=== PATIENT | female | born 1975 | race Caucasian/White ===

== ENCOUNTER 2017-10-17 00:01 | Emergency (ER) | payer MEDICAID, SELFPAY ==
--- NOTE | 2017-10-17 00:09 | NURSING ---
PT WAS RESTRAINED UPON ARRIVAL FOR COMBATIVE BEHAVIOR, NOT COOPERATING, BEING ABUSIVE TOWARD NURSING STAFF AND PHYSCIAN.
[2017-10-17 00:15] VITALS: BP 121/78; PULSE 91; RESP 25; TEMP 37.1; O2SAT 95; BMI 28.2
[2017-10-17] MEDS: Ziprasidone IM 20 MG/ML VIAL IM (00:30)
--- NOTE | 2017-10-17 00:49 | NURSING ---
pt has been told many times why she is here, [place] police were even called up here to talk with the patient why she is here. the police also talked with her family as well.
[2017-10-17 01:41] LABS: Absolute Lymphocyte Count 2.93 X10^3/ul (0.83-4.51); Absolute Neutrophil Count 3.3 X10^3/uL (2.0-7.7); Basophil# 0.05 X10^3/uL; Basophil% 0.7 % (0-1); Eosinophil# 0.07 X10^3/uL; Hematocrit 37.3 % (37-47); Lymphocyte # 2.93 X10^3/ul (4.0); Lymphocyte % 42.5 % (19-41); Mean Corp Hgb Conc 32.2 g/gl (32-36); Mean Corpuscular Hgb 28.1 pg (27.0-32.0); Mean Corpuscular Volume 87.4 fL (81-99); Mean Platelet Vol. 9.2 fl (6.2-12.0); Monocyte# 0.56 X10^3/uL; Monocyte% 8.1 % (0-10); Neutrophil # 3.27 X10^3/uL (2.7-7.7); Neutrophil % 47.6 % (47-70); Platelet Count 357 K/mm3 (150-450); RBC Distribution Width CV 13.8 % (11.6-14.6); RBC Distribution Width SD 43.8 fl (35.1-43.9); Red Blood Count 4.27 M/mm3 (4.2-5.4); White Blood Count 6.9 K/mm3 (4.4-11.0)
[2017-10-17 01:43] LABS: POSITIVE COUNT NO; POSITIVE DIFFERENTIAL NO; POSITIVE MORPHOLOGY NO
[2017-10-17 02:05] LABS: AST(SGOT) 16 U/L (15-37); Alanine Aminotransfer ALT/SGPT 15 U/L (13-56); Albumin, Serum 3.6 g/dL (3.2-5.0); Alkaline Phosphatase 72 U/L (45-117); Anion Gap 10 (5-15); BUN 18 mg/dL (7-18); BUN/Creat Ratio 23.6 RATIO (10-20); Calcium,Total 8.4 mg/dL (8.5-10.1); Chloride 110 mmol/L (98-107); Creatinine, Serum 0.76 mg/dL (0.55-1.02); EST Glomerular Filtration Rate 88 mL/min (>60); Est Glom Filt Rate - Afr Amer 107 mL/min (>60); Estimated Creatinine Clearance 100.78 ml/min; Globulin 3.6 g/dL (2.2-4.2); Glucose 93 mg/dL (74-106); Potassium 3.7 mmol/L (3.5-5.1); Protein, Total 7.2 g/dL (6.4-8.2); Sodium Level 143 mmol/L (136-145)
[2017-10-17 02:41] VITALS: BP 127/68; PULSE 76; RESP 16; O2SAT 97
--- NOTE | 2017-10-17 02:42 | NURSING ---
nurses had 4 attempts, were no successful iv.
[2017-10-17] MEDS: Ondansetron ODT 4 MG Tablet PO (02:52)
[2017-10-17 03:58] VITALS: BP 97/62; PULSE 67; RESP 16; O2SAT 96
--- NOTE | 2017-10-17 03:59 | NURSING ---
the pt was removed from restraints. she was picked up by a responsible adult who was sober. the pt was given her clothes back.
[2017-10-17 04:02] VITALS: BP 95/68; PULSE 67; RESP 18; O2SAT 96
--- NOTE | 2017-10-17 04:07 | ED.DCSUM_ITS ---
- ER Visit Summary Date of Service: 10/17/17 Chief Complaint: [] Alcohol intoxication History of Present Illness: The patient is a 42 F [] complaining of alcohol intoxication. Patient was brought in by local police as she over consumed alcohol at a local tavern and it was felt that she needed medical attention. She was physically aggressive upon arrival and required immediate physical restraints. Remainder of history was unable to be obtained. Physical Examination: [] Intoxicated female no acute distress cardiovascular exam is regular rate and rhythm. Lungs clear to auscultation. Abdomen is soft and nontender. Test Results: [] CBC, BMP, LFTs normal. Serum EtOH was obtained approximately 1.5 hours after her arrival as she was very belligerent and agitated. This measured as 0.221. Emergency Department Course and Treatment: [] Patient was placed in physical restraints and was still agitated and received 20 IM Geodon for chemical restraint. She was observed for approximately 3-1/2 hours when a family member called and requested to take her home and watch over her. She was more awake and alert after approximately 3 and half hours and was removed from physical restraints and was turned over in the care of her family member. Treatment Plan: [] Follow-up with PCP. Discontinue alcohol consumption. Disposition: [] Discharge, stable. Impression: [] Alcohol intoxication This note was generated with [employer] dictation software. It may contain incorrect words, spelling, and punctuation that were not noted in review of the chart prior to signing ED Disposition - Plan for ED Patient: Disposition: Home or Assisted Living Chief Complaint: ETOH Intox Referrals: Caterina Jones PA [Primary Care Provider] -
== END 2017-10-17 04:02 | disposition home or self-care (01) ==
PROVIDERS: Emergency Provider Emergency Medicine; Family Provider Physician Assistant; PCP Physician Assistant
DX: F10.129 Alcohol abuse with intoxication, unspecified (principal); E66.9 Obesity, unspecified; Z78.1 Physical restraint status; R45.1 Restlessness and agitation; Z79.899 Other long term (current) drug therapy
CPT/HCPCS: 36415; 80053; 80320; 85025; 96372; 99285; G0480; J3486

== ENCOUNTER 2018-06-20 06:44 | Emergency (ER) | payer MEDICAID, SELFPAY ==
[2018-06-20 06:45] VITALS: BP 160/71; PULSE 81; RESP 17; TEMP 37.2; O2SAT 96; BMI 27.9
--- NOTE | 2018-06-20 07:40 | CT_ITS ---
STUDY: CT ABDOMEN AND PELVIS WITHOUT CONTRAST REASON FOR EXAM: Female, 43 years old. Left flank pain and left abdominal pain since yesterday. History of stones. RADIATION DOSAGE (If Supplied By Facility): CTDIvol = ( 11.04 ) mGy, DLP = ( 573.56 ) mGycm TECHNIQUE: Transaxial images were obtained from the dome of the diaphragm to the symphysis pubis without oral contrast, and without intravenous contrast. Sagittal and coronal images were reconstructed. Individualized dose optimization techniques were used for this CT. COMPARISON: Comparison is made with prior study dated October 14, 2014. FINDINGS: Stable mild degree of right centrilobular emphysematous changes. The visualized portions of the heart are within normal limits. Normal liver. Normal gallbladder and extrahepatic biliary system. Normal spleen. Normal pancreas. There is stable hyperplasia of the left adrenal gland. There are 2 tiny nonobstructive right intrarenal calculi. The larger measures 3 mm. This is in the lower pole calyx. Normal left kidney. Normal visualized stomach. Normal small intestine. Normal colon. There are surgical clips in the region of the appendix consistent with a prior appendectomy. Normal abdominal aorta. Normal inferior vena cava. Normal retroperitoneum. Normal urinary bladder. There is a left-sided inguinal hernia containing adipose tissue. Normal osseous structures. CT/Abdomen/Pelvis without Cont IMPRESSION: 2 nonobstructive intrarenal calculi in the lower pole calyx of the right kidney. Stable mild hyperplasia of the left external gland. Stable emphysematous changes in the right lower lobe. Electronically Signed: Dario Solorzano MD at 9:12 EST Tel [phone], Service support ,
--- NOTE | 2018-06-20 07:53 | ED.DCSUM_ITS ---
- ER Visit Summary Date of Service: 06/20/18 Chief Complaint: [] Left flank pain for a few days History of Present Illness: The patient is a 43 F [] she presents complaining of left flank pain for a few days intensified this morning she came in for evaluation, because she has been having a vague pain to the left lower abdomen some urinary symptoms, she went to be seen at an urgent care center recently was diagnosed with UTI started on Keflex and ibuprofen, the left flank pain intensified today and she came in for evaluation, no nausea vomiting or fever denies any bowel or bladder complaints otherwise denies , No trauma does report a history of kidney stones years ago nothing recent, she points directly to the left flank as focus of pain Physical Examination: [] 160/80 afebrile, General, no distress resting comfortably HEENT is generally unremarkable The neck is supple no adenopathy Cardiovascular, regular rate and rhythm Lungs, clear bilateral Abdomen, soft nontender she has a vague pain to the left flank there is no rebound guarding organomegaly Extremities, no clubbing cyanosis or edema Neurologic, awake alert answering questions appropriately moving all 4 extremities Given all the above screening labs are obtained UA CT flank pain management The patient's studies are all unremarkable generally see those reports, her UA shows really nothing acute but she has been on antibiotics for a few days, her flank CT shows nothing acute see those reports Givenall the above with her given all the above she will stay on the ibuprofen she was prescribed, complete the Keflex she was prescribed, follow with her family doctor as an outpatient providers and return for change in symptoms I explained to the concept of an occult injury and hence the need for further outpatient management with her outpatient providers and she agrees and will follow up, please note we also did send a urine culture she is aware those results are pending and she will have her outpatient providers check those results Test Results: [] Emergency Department Course and Treatment: [] Treatment Plan: [] Disposition: [] Home stable Impression: [] Left flank pain etiology unclear, reported history for UTI on antibiotics This note was generated with [employer] software. It may contain incorrect words, spelling, and punctuation that were not noted in review of the chart prior to signing ED Disposition - Plan for ED Patient: Chief Complaint: Flank Pain Referrals: Caterina Jones PA [Primary Care Provider] -
[2018-06-20 08:00] LABS: Absolute Lymphocyte Count 1.32 X10^3/ul (0.83-4.51); Absolute Neutrophil Count 5.6 X10^3/uL (2.0-7.7); Basophil# 0.04 X10^3/uL; Basophil% 0.5 % (0-1); Eosinophil# 0.03 X10^3/uL; Eosinophils% 0.4 % (0-5); Hemoglobin 11.3 g/dl (12.0-15.0); Lymphocyte # 1.32 X10^3/ul (4.0); Lymphocyte % 16.6 % (19-41); Mean Corp Hgb Conc 32.3 g/gl (32-36); Mean Corpuscular Hgb 28.8 pg (27.0-32.0); Mean Corpuscular Volume 89.1 fL (81-99); Mean Platelet Vol. 10.3 fl (6.2-12.0); Monocyte# 0.93 X10^3/uL; Monocyte% 11.7 % (0-10); Neutrophil % 70.5 % (47-70); Platelet Count 327 K/mm3 (150-450); RBC Distribution Width CV 13.9 % (11.6-14.6); RBC Distribution Width SD 44.4 fl (35.1-43.9); Red Blood Count 3.93 M/mm3 (4.2-5.4); White Blood Count 7.9 K/mm3 (4.4-11.0)
[2018-06-20] MEDS: 0.9% Normal Saline 1,000 ML 250 ML IV (08:04)
[2018-06-20] MEDS: Ondansetron 4 MG/2 ML Vial IV (08:05)
[2018-06-20] MEDS: Morphine 4 MG/ML Syringe IV (08:05)
[2018-06-20 08:10] LABS: Anion Gap 10 (5-15); BUN 14 mg/dL (7-18); BUN/Creat Ratio 15.4 RATIO (10-20); Calcium,Total 8.4 mg/dL (8.5-10.1); Chloride 106 mmol/L (98-107); Creatinine, Serum 0.91 mg/dL (0.55-1.02); EST Glomerular Filtration Rate 72 mL/min (>60); Est Glom Filt Rate - Afr Amer 87 mL/min (>60); Estimated Creatinine Clearance 83.31 ml/min; Glucose 98 mg/dL (74-106); Potassium 3.8 mmol/L (3.5-5.1); Sodium Level 141 mmol/L (136-145)
[2018-06-20 08:22] LABS: POSITIVE COUNT NO; POSITIVE DIFFERENTIAL NO; POSITIVE MORPHOLOGY NO; Pregnancy, Serum, hCG Quali. NEGATIVE Negative (0-9 Nonpreg)
[2018-06-20 08:56] LABS: Mucous, Urine 0 SEEN /hpf (<or=2+)
[2018-06-20 09:06] VITALS: RESP 18
[2018-06-20 09:20] LABS: Color, Urine Yellow (Yellow); Glucose, Dipstick Normal (Normal); Ketone-Dipstick Negative (Negative); Leukocyte Esterase-Dipstick 25 /ul (Negative); Nitrite-Dipstick Negative (Negative); Occult Blood-Urine 25 /ul (Negative); Protein-Dipstick 15 mg/dl (Negative); Specific Gravity, Urine 1.015 (1.002-1.030); Urine Bilirubin Dipstick Negative (Negative); Urine Clarity Sl. Cloudy (Clear); Urine Urobilinogen Normal (Normal); Urine pH 6.5 (5.0 - 8.0)
[2018-06-20 09:21] LABS: Bacteria RARE /hpf (None Seen); Red Blood Cells-Urine 0-5 SEEN /hpf (0-5); Squamous Epithelial Cells - UA 0-5 SEEN /hpf (5-10); White Blood Cells 0-5 SEEN /hpf (0-5)
--- NOTE | 2018-06-20 10:01 | ED.DEP ---
ED Disposition - Plan for ED Patient: Chief Complaint: Flank Pain Instructions: ED Flank Pain Uncertain Cause Referrals: Caterina Jones PA [Primary Care Provider] - Michael Villela MD [STAFF PHYSICIAN] -
[2018-06-20] MEDS: Ketorolac 30 MG/ML Syringe IV (10:08)
--- OUTSIDE RECORDS SUMMARY | 2018-08-13 07:15 | XMS RPT_ITS ---
:1975 Author Organization OHIP Care Team Providers Name Role Phone PALMER SHAH Admitting Unavailable PALMER SHAH Attending Unavailable PALMER SHAH Admitting Unavailable PALMER SHAH Attending Unavailable PALMER SHAH Admitting Unavailable PALMER SHAH Attending Unavailable PALMER SHAH Attending Unavailable Caterina JONES (PA-C) Referring Unavailable OMID ALCANTAR ([facility]) Attending Unavailable Caterina JONES (PA-C) Referring Unavailable Caterina JONES (PA-C) Attending Unavailable Caterina JONES (PA-C) Attending Unavailable Caterina Jones Primary Care Unavailable Michael Manjarrez Attending Unavailable Caterina Jones Primary Care Unavailable Andi Curiel Attending Unavailable PROBLEMS PROBLEMS DATE TYPE CONDITION / CODE ATTENDING STATUS SOURCE 10/28/2017 Active 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, Other [place] lumbar region / Repository M51.36(ICD-10) 06/02/2017 Active 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, not Main [place] elsewhere classified Repository / M53.3(ICD-10) 03/17/2017 Active Lumbago with PALMER SHAH Active [facility] sciatica, left side Main [place] / M54.42(ICD-10) Repository PROCEDURES PROCEDURES No Procedure Records FoundRESULTS RESULTS EMERGENCY DEPARTMENT Observed: 06/20/2018 Status: F Source: [place] SUMMARY 4:21 PM [facility] REPOSITORY [facility] Medical Records Department [address] [place] [address] Emergency Department Summary 06/20/18 0751 MR#: [id number] Acct: [id number] Name: RADHA REYNOLDS Rep #: [id number] : 1975 43 From: Andi Curiel MD PCP: Caterina Jones Status: DEP ER - ER Visit Summary Date of Service: 06/20/18 Chief Complaint: [] Left flank pain for a few days History of Present Illness: The patient is a 43 F [] she presents complaining of left flank pain for a few days intensified this morning she came in for evaluation, because she has been having a vague pain to the left lower abdomen some urinary symptoms, she went to be seen at an urgent care center recently was diagnosed with UTI started on Keflex and ibuprofen, the left flank pain intensified today and she came in for evaluation, no nausea vomiting or fever denies any bowel or bladder complaints otherwise denies , No trauma does report a history of kidney stones years ago nothing recent, she points directly to the left flank as focus of pain Physical Examination: [] 160/80 afebrile, General, no distress resting comfortably HEENT is generally unremarkable The neck is supple no adenopathy Cardiovascular, regular rate and rhythm Lungs, clear bilateral Abdomen, soft nontender she has a vague pain to the left flank there is no rebound guarding organomegaly Extremities, no clubbing cyanosis or edema Neurologic, awake alert answering questions appropriately moving all 4 extremities Given all the above screening labs are obtained UA CT flank pain management The patient's studies are all unremarkable generally see those reports, her UA shows really nothing acute but she has been on antibiotics for a few days, her flank CT shows nothing acute see those reports Givenall the above with her given all the above she will stay on the ibuprofen she was prescribed, complete the Keflex she was prescribed, follow with her family doctor as an outpatient providers and return for change in symptoms I explained to the concept of an occult injury and hence the need for further outpatient management with her outpatient providers and she agrees and will follow up, please note we also did send a urine culture she is aware those results are pending and she will have her outpatient providers check those results Test Results: [] Emergency Department Course and Treatment: [] Treatment Plan: [] Disposition: [] Home stable Impression: [] Left flank pain etiology unclear, reported history for UTI on antibiotics This note was generated with Un-Lease.comation software. It may contain incorrect words, spelling, and punctuation that were not noted in review of the chart prior to signing ED Disposition - Plan for ED Patient: Chief Complaint: Flank Pain Referrals: Caterina Jones PA [Primary Care Provider] - What to do if you have Problems For any increased pain, shortness of breath, bleeding, nausea or vomiting, chest pain, or any unexpected problems, contact your Primary Care Provider. Call [facility] ([phone]) or report to the closest Emergency Room. Call 911 if necessary. 06/20/18 1621 <Electronically signed by Andi Curiel MD> Date Andi Curiel MD Cosigner Signature (If Indicated): Date CC: Caterina Jones DISCHARGE INSTRUCTION Observed: 06/20/2018 Status: F Source: [place] 10:02 AM [facility] REPOSITORY [facility] Medical Records Department [address] [place] [address] Discharge Instruction 06/20/18 1001 MR#: [id number] Acct: [id number] Name: RADHA REYNOLDS Rep #: [id number] : 1975 43 From: Andi Curiel MD PCP: Caterina Jones Status: REG ER ED Disposition - Plan for ED Patient: Chief Complaint: Flank Pain Instructions: ED Flank Pain Uncertain Cause Referrals: Caterina Jones PA [Primary Care Provider] - Michael Villela MD [STAFF PHYSICIAN] - What to do if you have Problems For any increased pain, shortness of breath, bleeding, nausea or vomiting, chest pain, or any unexpected problems, contact your Primary Care Provider. Call [facility] ([phone]) or report to the closest Emergency Room. Call 911 if necessary. 06/20/18 1002 <Electronically signed by Andi Curiel MD> Date Andi Curiel MD Cosigner Signature (If Indicated): Date CC: Caterina Jones URINALYSIS, COMPLETE Collected: 06/20/2018 Status: F Source: [place] 8:50 AM [facility] REPOSITORY Order Comment: Order Date: 06/20/18 Has pt arrived? Y How was Urine Obtained? CLEAN CATCH TYPE CODE TESTS RESULT OUT OF RANGE REFERENCE UNITS LAB L400.3000 Yellow COLOR Normal Yellow LAB L400.3050 Clear Normal CLARITY Sl. Cloudy LAB L400.3200 Normal mg/dl Normal GLUCOSE, UR Normal LAB L400.3300 Negative mg/dL Normal BILIRUBIN URINE Negative LAB L400.3400 Negative mg/dl Normal KETONE UR Negative LAB L400.3465 1.002-1.030 Normal SP.GR. DIPSTX 1.015 LAB L400.3550 5.0 - 8.0 pH UR Normal 6.5 LAB L400.3600 Negative mg/dl High PROT 15 DIPSTX LAB L400.3700 Normal mg/dl Normal UROBILI Normal LAB L400.3750 Negative Normal NITRITE UR Negative LAB L400.3780 Negative /ul High 25 OCCULT BLOOD-UR LAB L400.3800 Negative /ul High LEUK 25 ESTERASE LAB L400.4050 0-5 /hpf WBC Normal 0-5 SEEN LAB L400.4100 0-5 /hpf Normal RBC-UA 0-5 SEEN LAB L400.4150 5-10 /hpf SQUAM Normal EPI 0-5 SEEN LAB L400.4300 None Seen /hpf Normal BACTERIA RARE LAB L400.4350 <or=2+ /hpf 0 Normal MUCUS, URINE SEEN Performed By: #### L400.0001 #### [facility] [address] [place], [address] Observed: 06/20/2018 Status: F Source: [place] CULTURE, URINE 8:50 AM [facility] REPOSITORY Order Date: 06/20/18 Has pt arrived? Y Urine Culture Below infection level. ORGANISM 1: Gram Positive [place] Count <1000 Performed By: #### M100.0650 #### [facility] [address] [place], [address] ABDOMEN/PELVIS WITHOUT Observed: 06/20/2018 Status: F Source: [place] CONT 7:41 AM [facility] REPOSITORY [facility] Imaging Services [address] [place] [address] Abdomen/Pelvis without Cont MR#: [id number] Acct: [id number] Name: RADHA REYNOLDS Rep #: [id number] : 1975 F 43 From: Dario Solorzano MD PCP: Caterina Jones Status: REG ER Study: Abdomen/Pelvis without Cont Date of Exam: 06/20/18 Exam# [id number] Ordering Dr: Andi Cuirel MD STUDY: CT ABDOMEN AND PELVIS WITHOUT CONTRAST REASON FOR EXAM: Female, 43 years old. Left flank pain and left abdominal pain since yesterday. History of stones. RADIATION DOSAGE (If Supplied By Facility): CTDIvol = ( 11.04 ) mGy, DLP = ( 573.56 ) mGycm TECHNIQUE: Transaxial images were obtained from the dome of the diaphragm to the symphysis pubis without oral contrast, and without intravenous contrast. Sagittal and coronal images were reconstructed. Individualized dose optimization techniques were used for this CT. COMPARISON: Comparison is made with prior study dated October 14, 2014. FINDINGS: Stable mild degree of right centrilobular emphysematous changes. The visualized portions of the heart are within normal limits. Normal liver. Normal gallbladder and extrahepatic biliary system. Normal spleen. Normal pancreas. There is stable hyperplasia of the left adrenal gland. There are 2 tiny nonobstructive right intrarenal calculi. The larger measures 3 mm. This is in the lower pole calyx. Normal left kidney. Normal visualized stomach. Normal small intestine. Normal colon. There are surgical clips in the region of the appendix consistent with a prior appendectomy. Normal abdominal aorta. Normal inferior vena cava. Normal retroperitoneum. Normal urinary bladder. There is a left-sided inguinal hernia containing adipose tissue. Normal osseous structures. CT/Abdomen/Pelvis without Cont IMPRESSION: 2 nonobstructive intrarenal calculi in the lower pole calyx of the right kidney. Stable mild hyperplasia of the left external gland. Stable emphysematous changes in the right lower lobe. Electronically Signed: Dario Solorzano MD at 9:12 EST Tel [phone], Service support , CC: Caterina Jones; MD Telma Curiel Ortho Assistant: Signed BASIC METABOLIC Collected: 06/20/2018 Status: F Source: [place] PROFILE (BMP) 7:20 AM [facility] REPOSITORY TYPE CODE TESTS RESULT OUT OF RANGE REFERENCE UNITS LAB L501.0100 74-106 mg/dL Normal GLU 98 Result Comment: Please note revised GLUCOSE reference range effective 2017. LAB L501.1000 7-18 mg/dL Normal BUN 14 LAB L501.1100 0.55-1.02 mg/dL Normal CREAT,SERUM 0.91 Result Comment: The validity of the calculated GFR AND GFRAA in patients over 70 years has not been determined. Clinical correlation is essential. LAB L501.1110 >60 mL/min Normal EST GFR 72 Result Comment: Non- GFR Calc LAB L501.1115 >60 mL/min Normal EST GFR - AA 87 Result Comment: GFR Calc LAB L501.1255 ml/min Normal Estimated CRCL 83.31 LAB L501.1300 10-20 RATIO Normal BUN/CRE 15.4 LAB L501.2200 8.5-10 mg/dL Low .1 CA 8.4 LAB L501.5300 136-14 mmol/L Normal 5 NA 141 LAB L501.5600 3.5-5. mmol/L Normal 1 K 3.8 LAB L501.5900 98-107 mmol/L Normal CL 106 LAB L501.6100 21.0-3 mmol/L Normal 2.0 CO2 25.0 LAB L501.6200 5-15 Normal GAP 10 Performed By: #### L500.2500 #### [facility] [address] [place], [address] CBC W/DIFF, AUTOMATED Collected: 06/20/2018 Status: F Source: [place] 7:20 AM [facility] REPOSITORY TYPE CODE TESTS RESULT OUT OF RANGE REFERENCE UNITS LAB L100.1000 4.4-11.0 K/mm3 Normal WBC 7.9 LAB L100.1200 4.2-5.4 M/mm3 Low RBC 3.93 LAB L100.1300 12.0-15.0 g/dl Low HGB 11.3 LAB L100.1400 37-47 % Low HCT 35.0 LAB L100.1500 81-99 fL Normal MCV 89.1 LAB L100.1600 27.0-32.0 pg Normal MCH 28.8 LAB L100.1700 32-36 g/gl Normal MCHC 32.3 LAB L100.1810 11.6-14.6 % Normal RDW CV 13.9 LAB L100.1820 35.1-43.9 fl High RDW SD 44.4 LAB L100.1900 150-450 K/mm3 Normal PLT 327 LAB L100.2000 6.2-12.0 fl Normal MPV 10.3 LAB L100.2100 47-70 % High NEUT% 70.5 LAB L100.2200 19-41 % Low LY% 16.6 LAB L100.2300 0-10 % High MONO% 11.7 LAB L100.2400 0-5 % Normal EO% 0.4 LAB L100.2500 0-1 % Normal BASO% 0.5 LAB L100.2550 0.0-0.9 % Normal IM GRAN % 0.300 Result Comment: IG% - Immature Granulocytes (promyelocytes, myelocytes and metamyelocytes) > 1% indicates that a LEFT SHIFT is Present. LAB L100.2620 2.0-7.7 X10 3/uL Normal Absolute Neut 5.6 LAB L100.2720 0.83-4.51 X10 3/ul Normal Absolute Lymph 1.32 Performed By: #### L100.0100 #### [facility] [address] [place], [address] ,SERUM,HCG QUALI. Collected: Status: F Source: [place] 06/20/2018 7:20 AM [facility] REPOSITORY TYPE CODE TESTS RESULT OUT OF REFERENCE UNITS RANGE LAB L700.7000 0-9 Nonpreg Negative Normal HCGSQUAL NEGATIVE LAB L700.6700 =>Qualitative mIU/mL Normal HCG Qual < 1 triggr Performed By: #### L700.6800 #### [facility] [address] [place], [address] PROGRESS Observed: 06/19/2018 Status: COMPLETED Source: [place] 2:26 PM [facility] [place] REPOSITORY HNO ID: [id number] Author: Zaynab Rebolledo (Pa) Service: (none) Author Type: Physician Electrical Prospecting Engineer Type: Progress Notes Filed: 06/19/2018 2:30 PM Note Text: Subjective HPI Patient presents with a chief complaint of left flank pain and urinary frequency. She denies any dysuria. She does have a history of kidney infections and kidney stones in the past. She denies any vomiting but has felt mildly nauseous. No fever. No diarrhea. Last menstrual cycle was last week and normal for her. Denies any vaginal discharge or drainage. Review of Systems Constitutional: Negative for chills and fever. Gastrointestinal: Positive for constipation and nausea. Negative for abdominal pain, diarrhea and vomiting. Genitourinary: Positive for flank pain, frequency and urgency. Negative for dysuria and hematuria. Musculoskeletal: Positive for back pain. Negative for falls, joint pain, myalgias and neck pain. All other systems reviewed and are negative. PAST MEDICAL HISTORY Diagnosis Date - DVT complicating 2 weeks Post CS - Meniere's disease, unspecified Meniere's disease - MIGRAINE NOS W/O MENTN INTRACTABLE 09/07/2005 - Other anxiety states Current Outpatient Prescriptions: sertraline (ZOLOFT) 100 mg tablet Take 1.5 tablets by mouth once daily. Disp: 135 tablet Rfl: 1 Multivitamins chew Take by mouth once daily. Disp: Rfl: ibuprofen (MOTRIN) 800 mg tablet TAKE 1 TABLET BY MOUTH EVERY 8 HOURS NEEDED FOR PAIN OR FEVER (FOR PAIN. TAKE WITH FOOD). Disp: 30 tablet Rfl: 5 cephALEXin (KEFLEX) 500 mg capsule Take 1 capsule by mouth twice daily for 10 days. Disp: 20 capsule Rfl: 0 tiZANidine (ZANAFLEX) 4 mg tablet Take 1 tablet by mouth at bedtime as needed. Disp: 30 tablet Rfl: 2 BIOTIN ORAL Take by mouth once daily. Disp: Rfl: promethazine (PHENERGAN) 25 mg tablet TAKE 1 TABLET BY MOUTH EVERY 6 HOURS NEEDED Disp: 30 tablet Rfl: 1 No current facility-administered medications for this visit. PAST SURGICAL HISTORY Procedure Laterality Date - APPENDECTOMY - DELIVERY ONLY , low cervical x 3 - LIGATE FALLOPIAN TUBE Tubal ligation - PAST SURGICAL HISTORY OF labyrinthectomy, left FAMILY HISTORY Problem Relation Age of Onset - Adopted: Yes - other (adopted) Mother - other (adopted) Father Social History Substance Use Topics - Smoking status: Former Smoker Packs/day: 0.50 Years: 10.00 Types: Cigarettes - Smokeless tobacco: Never Used Comment: smokes 1/2 pack per day - Alcohol use Yes Comment: Socially 3 times a year BP 110/72 Pulse 74 Temp 37 ?C (98.6 ?F) (Left Tympanic) Resp 16 Wt 85.9 kg (189 lb 6.4 oz) SpO2 98% BMI 28.80 kg/m? Objective Physical Exam Constitutional: She is oriented to person, place, and time and well-developed, well-nourished, and in no distress. HENT: Head: Normocephalic and atraumatic. Cardiovascular: Normal rate, regular rhythm and normal heart sounds. Pulmonary/Chest: Effort normal and breath sounds normal. Abdominal: Pt mildly tender on left flank, no guarding or rebound. Left CVA tenderness. No right abdominal pain. Neurological: She is alert and oriented to person, place, and time. Skin: Skin is warm and dry. Psychiatric: Affect and judgment normal. Nursing note and vitals reviewed. ASSESSMENT/PLAN: 1. Left flank pain - ICD9: 789.09, ICD10: R10.9 (primary diagnosis) } - UA DIP, URINE (POC) - URINE CULTURE - CEPHALEXIN 500 MG CAPSULE 2. Urinary frequency - ICD9: 788.41, ICD10: R35.0 Patient's temp was positive for moderate blood and small leukoesterase. I will treat her with Keflex. I did discuss with her if her flank pain becomes severe she has any vomiting or fever she needs to go to the emergency department. Explain her that I could not completely rule out kidney stone as she has had these in the past versus a urinary tract infection. Patient understood. - UA DIP, URINE (POC) - URINE CULTURE - CEPHALEXIN 500 MG CAPSULE Zaynab Rebolledo PA-C Observed: 06/19/2018 Status: F Source: [place] URINE CULTURE 1:51 PM [facility] REPOSITORY Sp. Request/Comment: - Specimen received in preservative Culture Result - >=100,000 CFU/ml Escherichia coli --> ABNORMAL ALERT ORGANISM: Escherichia coli METHOD: Minimum inhibitory concentration(Vitek) Antibiotic Interp TIGIST Status Ampicillin SUSCEPTIBLE <=2 F Gentamicin SUSCEPTIBLE <=1 F Trimeth sulfameth SUSCEPTIBLE <=20 F Cefazolin SUSCEPTIBLE <=4 F CLSI breakpoints for therapy of uncomplicated UTI's due to E.coli, K.pneumoniae, and P.mirabilis were applied and may be used to predict the activity of oral agents(cefaclor, cefdinir, cefpodoxime, cefp rozil, cefuroxime, cephalexin, loracarbef). Ciprofloxacin SUSCEPTIBLE <=0.25 F Nitrofurantoin SUSCEPTIBLE <=16 F Cefepime SUSCEPTIBLE <=1 F Piperacillin/Tazobac SUSCEPTIBLE <=4 F Ampicillin Sulbact SUSCEPTIBLE <=2 F Ceftriaxone SUSCEPTIBLE <=1 F Meropenem SUSCEPTIBLE <=0.25 F Ertapenem SUSCEPTIBLE <=0.5 F Performed By: #### URCUL #### [facility] [address] [place], [place] [address] CNOV Observed: 06/19/2018 Status: COMPLETED Source: [place] 1:00 PM [facility] REPOSITORY Office Visit ([facility]) RADHA REYNOLDS ([id number]) 1975 F Date Time Provider Department 06/19/18 1:00 PM ZAYNAB REBOLLEDO (ZOIE) [facility] During your visit today, we recorded the following information about you: Temperature Pulse Respiration Blood pressure 98.6 degrees 74/minute 16/minute 110/72 Weight 85.9 kg Zaynab Rebolledo PA-C 06/19/2018 2:30 PM Signed Subjective HPI Patient presents with a chief complaint of left flank pain and urinary frequency. She denies any dysuria. She does have a history of kidney infections and kidney stones in the past. She denies any vomiting but has felt mildly nauseous. No fever. No diarrhea. Last menstrual cycle was last week and normal for her. Denies any vaginal discharge or drainage. Review of Systems Constitutional: Negative for chills and fever. Gastrointestinal: Positive for constipation and nausea. Negative for abdominal pain, diarrhea and vomiting. Genitourinary: Positive for flank pain, frequency and urgency. Negative for dysuria and hematuria. Musculoskeletal: Positive for back pain. Negative for falls, joint pain, myalgias and neck pain. All other systems reviewed and are negative. PAST MEDICAL HISTORY Diagnosis Date - DVT complicating 2 weeks Post CS - Meniere's disease, unspecified Meniere's disease - MIGRAINE NOS W/O MENTN INTRACTABLE 09/07/2005 - Other anxiety states Current Outpatient Prescriptions: sertraline (ZOLOFT) 100 mg tablet Take 1.5 tablets by mouth once daily. Disp: 135 tablet Rfl: 1 Multivitamins chew Take by mouth once daily. Disp: Rfl: ibuprofen (MOTRIN) 800 mg tablet TAKE 1 TABLET BY MOUTH EVERY 8 HOURS NEEDED FOR PAIN OR FEVER (FOR PAIN. TAKE WITH FOOD). Disp: 30 tablet Rfl: 5 cephALEXin (KEFLEX) 500 mg capsule Take 1 capsule by mouth twice daily for 10 days. Disp: 20 capsule Rfl: 0 tiZANidine (ZANAFLEX) 4 mg tablet Take 1 tablet by mouth at bedtime as needed. Disp: 30 tablet Rfl: 2 BIOTIN ORAL Take by mouth once daily. Disp: Rfl: promethazine (PHENERGAN) 25 mg tablet TAKE 1 TABLET BY MOUTH EVERY 6 HOURS NEEDED Disp: 30 tablet Rfl: 1 No current facility-administered medications for this visit. PAST SURGICAL HISTORY Procedure Laterality Date - APPENDECTOMY - DELIVERY ONLY , low cervical x 3 - LIGATE FALLOPIAN TUBE Tubal ligation - PAST SURGICAL HISTORY OF labyrinthectomy, left FAMILY HISTORY Problem Relation Age of Onset - Adopted: Yes - other (adopted) Mother - other (adopted) Father Social History Substance Use Topics - Smoking status: Former Smoker Packs/day: 0.50 Years: 10.00 Types: Cigarettes - Smokeless tobacco: Never Used Comment: smokes 1/2 pack per day - Alcohol use Yes Comment: Socially 3 times a year BP 110/72 Pulse 74 Temp 37 ?C (98.6 ?F) (Left Tympanic) Resp 16 Wt 85.9 kg (189 lb 6.4 oz) SpO2 98% BMI 28.80 kg/m? Objective Physical Exam Constitutional: She is oriented to person, place, and time and well-developed, well-nourished, and in no distress. HENT: Head: Normocephalic and atraumatic. Cardiovascular: Normal rate, regular rhythm and normal heart sounds. Pulmonary/Chest: Effort normal and breath sounds normal. Abdominal: Pt mildly tender on left flank, no guarding or rebound. Left CVA tenderness. No right abdominal pain. Neurological: She is alert and oriented to person, place, and time. Skin: Skin is warm and dry. Psychiatric: Affect and judgment normal. Nursing note and vitals reviewed. ASSESSMENT/PLAN: 1. Left flank pain - ICD9: 789.09, ICD10: R10.9 (primary diagnosis) } - UA DIP, URINE (POC) - URINE CULTURE - CEPHALEXIN 500 MG CAPSULE 2. Urinary frequency - ICD9: 788.41, ICD10: R35.0 Patient's temp was positive for moderate blood and small leukoesterase. I will treat her with Keflex. I did discuss with her if her flank pain becomes severe she has any vomiting or fever she needs to go to the emergency department. Explain her that I could not completely rule out kidney stone as she has had these in the past versus a urinary tract infection. Patient understood. - UA DIP, URINE (POC) - URINE CULTURE - CEPHALEXIN 500 MG CAPSULE Zaynab Rebolledo PA-C Referring Provider: SELF [200] Allergies As of Date: 06/19/[address] dye [Other] 02/02/2005 14 - Other: See Comments Comments: low blood pressure with the injectable dye Date Reviewed: 06/19/2018 Reviewed by: Jossy Barber Ma - Fully Assessed Reason for Visit: Acute Visit [896] Cmt: left flank pain Reason For Visit History Recorded Primary Visit Diagnosis:Left flank pain [R10.9] Other Visit Diagnosis:Urinary frequency [R35.0] Order(s):UA DIP, URINE (POC) [[id number]] Order #: [id number] #:[id number] URINE CULTURE [SQURCUL] Order #: [id number] cephALEXin (KEFLEX) 500 mg capsuleTake 1 capsule by mouth twice daily for 10 days.Disp: 20 capsuleRfl: 0 Prescriptions as of 06/19/2018 Sig: SERTRALINE 100 MG TABLET Take 1.5 tablets by mouth onc* MULTIVITAMIN CHEWABLE TABLET Take by mouth once daily. IBUPROFEN 800 MG TABLET TAKE 1 TABLET BY MOUTH EVERY * CEPHALEXIN 500 MG CAPSULE Take 1 capsule by mouth twice* TIZANIDINE 4 MG TABLET Take 1 tablet by mouth at bed* BIOTIN ORAL Take by mouth once daily. 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 Degenerative disc disease, lumbar [M51.36] INVALID FOR* More... DDD (degenerative disc disease), lumbar [M51.36]INVALID FOR* More... Prescriptions ordered this encounter Disp Refills Start End CEPHALEXIN 500 MG CAPSULE 20 c* 0 06/19/2018 06/29/2018 Route: ORAL Sig: Take 1 capsule by mouth twice daily for 10 days. Encounter Status:Closed by ZAYNAB REBOLLEDO PA-C on 06/19/18 PROGRESS Observed: 05/11/2018 Status: COMPLETED Source: [place] 3:18 PM [facility] REPOSITORY O ID: [id number] Author: Caterina Ruvalcaba (Olga) Robert Service: (none) Author Type: Physician Electrical Prospecting Engineer Type: Progress Notes Filed: 05/11/2018 3:23 PM Note Text: 43 year old female with c/o For follow-up on depression. Patient states both mother and father last month within 5 days of each other. She is now dealing with family members with complaint of problems in the past. This is particularly bad with 1 brother who she feels scan and her parents out of the prison income. This particular individual bag up all other belongings and placed him in a garage about 2 days after they were out of the house. She feels that there is been conflict with family members wanting to take possession and send she's frustrated with the relationships. Difficulty resting, sleep is been poor. She is inquiring as to whether it might be beneficial increase Zoloft. She is used 10 Xanax tablets in the last 3 months for Meniere's symptoms. She states this does seem to help her sleep but doesn't like to take it routinely. Also complaining of exacerbation of pain in left lower back radiating into left leg. Had radiofrequency ablation with Dr. Shah which lasted for about 3 weeks. She is disappointed because he told her it would be several months of relief but that has not come in the past. She did better with physical therapy and is interested in resuming. She does use Flexeril intermittently again very sparingly. HISTORIES FAMILY HISTORY Problem Relation Age of Onset - Adopted: Yes - other (adopted) Mother - other (adopted) Father PAST MEDICAL HISTORY Diagnosis Date - DVT complicating 2 weeks Post CS - Meniere's disease, unspecified Meniere's disease - MIGRAINE NOS W/O MENTN INTRACTABLE 09/07/2005 - Other anxiety states PAST SURGICAL HISTORY Procedure Laterality Date - APPENDECTOMY - DELIVERY ONLY , low cervical x 3 - LIGATE FALLOPIAN TUBE Tubal ligation - PAST SURGICAL HISTORY OF labyrinthectomy, left Social History Marital status: Spouse name: Years of education: Number of children: 3 Occupational History Occupation Employer Comment Unemployed Social History Main Topics Smoking status: Former Smoker Packs/day: 0.50 Years: 10.00 Types: Cigarettes Smokeless tobacco: Never Used Comment: smokes 1/2 pack per day Alcohol use: Yes Comment: Socially 3 times a year Drug use: No Sexual activity: Yes Partners with: Male control/protection: Tubal Ligation ACTIVE PROBLEM LIST Adjustment Disorder With Depressed Mood Migraine, Unspecified, Without Mention of Intractable Migraine Without Mention of Status Migrainosus Pain in Joint, Site Unspecified Active Meniere's Disease, Cochleovestibular Symptomatic Menopausal Or Female Climacteric States Encounter for Gynecological Examination With Abnormal Finding Left-Sided Low Back Pain With Left-Sided Sciatica Si (Sacroiliac) Joint Dysfunction Degenerative Disc Disease, Lumbar Ddd (Degenerative Disc Disease), Lumbar Current Outpatient Prescriptions: sertraline (ZOLOFT) 100 mg tablet Take 1.5 tablets by mouth once daily. Disp: 135 tablet Rfl: 1 tiZANidine (ZANAFLEX) 4 mg tablet Take 1 tablet by mouth at bedtime as needed. Disp: 30 tablet Rfl: 2 Multivitamins chew Take by mouth once daily. Disp: Rfl: ibuprofen (MOTRIN) 800 mg tablet TAKE 1 TABLET BY MOUTH EVERY 8 HOURS NEEDED FOR PAIN OR FEVER (FOR PAIN. TAKE WITH FOOD). Disp: 30 tablet Rfl: 5 promethazine (PHENERGAN) 25 mg tablet TAKE 1 TABLET BY MOUTH EVERY 6 HOURS NEEDED Disp: 30 tablet Rfl: 1 ALPRAZolam (XANAX) 0.25 mg tablet Take 1 tablet by mouth once daily as needed for up to 30 days. Disp: 30 tablet Rfl: 0 BIOTIN ORAL Take by mouth once daily. Disp: Rfl: No current facility-administered medications for this visit. DTAP,TDAP,TD(1 - Tdap) due on 1994 MAMMOGRAM due on 08/21/2017 EXAM: BP 130/88 Pulse 74 Resp 16 Wt 87.5 kg (193 lb) BMI 29.35 kg/m? Pleasant adult woman in no acute distress. Alert and oriented all spheres. Normal affect and cognition. Speech normal. No deficits to learning or comprehension. Skin warm, dry, pink to lips and nailbeds. Normal turgor. Respirations regular and unlabored. HEENT WNL. TM's clear. Nose and oropharynx free from injection or lesion. No cervical lymph nodes. Thyroid non-tender, no masses Chest CTA. HRRR without murmur or gallop. 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 Extrem: no clubbing, cyanosis, edema. Extremities are warm and pink with prompt capillary refill. ASSESSMENT/PLAN: 1. Encounter for other screening for malignant neoplasm of breast - ICD9: V76.19, ICD10: Z12.39 (primary diagnosis) - Completed pelvic and breast exam - Encouraged monthly BSE - Follow up for annual exam in one year. - [facility] SCREENING 2. Active Meniere's disease, cochleovestibular, unspecified laterality - ICD9: 386.01, ICD10: H81.09 Does it without - ALPRAZOLAM 0.25 MG TABLET 3. Left-sided low back pain with left-sided sciatica, unspecified chronicity - ICD9: 724.3, ICD10: M54.42 Facet syndrome - Ice for localized tenderness - TIZANIDINE 4 MG TABLET - CONSULT TO PHYSICAL THERAPY f/u 1-2 months or as needed. Caterina Jones PA-C CNOV Observed: 05/11/2018 Status: COMPLETED Source: [place] 2:40 PM [facility] REPOSITORY Office Visit (FAMPWS) RADHA REYNOLDS ([id number]) 1975 F Date Time Provider Department 05/11/18 2:40 PM Caterina JONES) FAMPWS During your visit today, we recorded the following information about you: Pulse Respiration Blood pressure Weight 74/minute 16/minute 130/88 87.5 kg Caterina Jones PA-C 05/11/2018 3:23 PM Signed 43 year old female with c/o For follow-up on depression. Patient states both mother and father last month within 5 days of each other. She is now dealing with family members with complaint of problems in the past. This is particularly bad with 1 brother who she feels scan and her parents out of the prison income. This particular individual bag up all other belongings and placed him in a garage about 2 days after they were out of the house. She feels that there is been conflict with family members wanting to take possession and send she's frustrated with the relationships. Difficulty resting, sleep is been poor. She is inquiring as to whether it might be beneficial increase Zoloft. She is used 10 Xanax tablets in the last 3 months for Meniere's symptoms. She states this does seem to help her sleep but doesn't like to take it routinely. Also complaining of exacerbation of pain in left lower back radiating into left leg. Had radiofrequency ablation with Dr. Shah which lasted for about 3 weeks. She is disappointed because he told her it would be several months of relief but that has not come in the past. She did better with physical therapy and is interested in resuming. She does use Flexeril intermittently again very sparingly. HISTORIES FAMILY HISTORY Problem Relation Age of Onset - Adopted: Yes - other (adopted) Mother - other (adopted) Father PAST MEDICAL HISTORY Diagnosis Date - DVT complicating 2 weeks Post CS - Meniere's disease, unspecified Meniere's disease - MIGRAINE NOS W/O MENTN INTRACTABLE 09/07/2005 - Other anxiety states PAST SURGICAL HISTORY Procedure Laterality Date - APPENDECTOMY - DELIVERY ONLY , low cervical x 3 - LIGATE FALLOPIAN TUBE Tubal ligation - PAST SURGICAL HISTORY OF labyrinthectomy, left Social History Marital status: Spouse name: Years of education: Number of children: 3 Occupational History Occupation Employer Comment Unemployed Social History Main Topics Smoking status: Former Smoker Packs/day: 0.50 Years: 10.00 Types: Cigarettes Smokeless tobacco: Never Used Comment: smokes 1/2 pack per day Alcohol use: Yes Comment: Socially 3 times a year Drug use: No Sexual activity: Yes Partners with: Male control/protection: Tubal Ligation ACTIVE PROBLEM LIST Adjustment Disorder With Depressed Mood Migraine, Unspecified, Without Mention of Intractable Migraine Without Mention of Status Migrainosus Pain in Joint, Site Unspecified Active Meniere's Disease, Cochleovestibular Symptomatic Menopausal Or Female Climacteric States Encounter for Gynecological Examination With Abnormal Finding Left-Sided Low Back Pain With Left-Sided Sciatica Si (Sacroiliac) Joint Dysfunction Degenerative Disc Disease, Lumbar Ddd (Degenerative Disc Disease), Lumbar Current Outpatient Prescriptions: sertraline (ZOLOFT) 100 mg tablet Take 1.5 tablets by mouth once daily. Disp: 135 tablet Rfl: 1 tiZANidine (ZANAFLEX) 4 mg tablet Take 1 tablet by mouth at bedtime as needed. Disp: 30 tablet Rfl: 2 Multivitamins chew Take by mouth once daily. Disp: Rfl: ibuprofen (MOTRIN) 800 mg tablet TAKE 1 TABLET BY MOUTH EVERY 8 HOURS NEEDED FOR PAIN OR FEVER (FOR PAIN. TAKE WITH FOOD). Disp: 30 tablet Rfl: 5 promethazine (PHENERGAN) 25 mg tablet TAKE 1 TABLET BY MOUTH EVERY 6 HOURS NEEDED Disp: 30 tablet Rfl: 1 ALPRAZolam (XANAX) 0.25 mg tablet Take 1 tablet by mouth once daily as needed for up to 30 days. Disp: 30 tablet Rfl: 0 BIOTIN ORAL Take by mouth once daily. Disp: Rfl: No current facility-administered medications for this visit. DTAP,TDAP,TD(1 - Tdap) due on 1994 MAMMOGRAM due on 08/21/2017 EXAM: BP 130/88 Pulse 74 Resp 16 Wt 87.5 kg (193 lb) BMI 29.35 kg/m? Pleasant adult woman in no acute distress. Alert and oriented all spheres. Normal affect and cognition. Speech normal. No deficits to learning or comprehension. Skin warm, dry, pink to lips and nailbeds. Normal turgor. Respirations regular and unlabored. HEENT WNL. TM's clear. Nose and oropharynx free from injection or lesion. No cervical lymph nodes. Thyroid non-tender, no masses Chest CTA. HRRR without murmur or gallop. 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 Extrem: no clubbing, cyanosis, edema. Extremities are warm and pink with prompt capillary refill. ASSESSMENT/PLAN: 1. Encounter for other screening for malignant neoplasm of breast - ICD9: V76.19, ICD10: Z12.39 (primary diagnosis) - Completed pelvic and breast exam - Encouraged monthly BSE - Follow up for annual exam in one year. - [facility] SCREENING 2. Active Meniere's disease, cochleovestibular, unspecified laterality - ICD9: 386.01, ICD10: H81.09 Does it without - ALPRAZOLAM 0.25 MG TABLET 3. Left-sided low back pain with left-sided sciatica, unspecified chronicity - ICD9: 724.3, ICD10: M54.42 Facet syndrome - Ice for localized tenderness - TIZANIDINE 4 MG TABLET - CONSULT TO PHYSICAL THERAPY f/u 1-2 months or as needed. M Jordon Jones PA-C Referring Provider: SELF [[id number]] Allergies As of Date: 05/11/[address] dye [Other] 02/02/2005 14 - Other: See Comments Comments: low blood pressure with the injectable dye Date Reviewed: 05/11/2018 Reviewed by: Chari Ware Ma - Fully Assessed Reason for Visit: Medication Follow-up [270] Cmt: would like zoloft increased Primary Visit Diagnosis:Encounter for other screening for malignant neoplasm of breast [Z12.39] Other Visit Diagnoses:Active Meniere's disease, cochleovestibular, unspecified laterality [H81.09] Left-sided low back pain with left- sided sciatica, unspecified chronicity [M54.42] Order(s):[facility] SCREENING [[id number]] Order #: [id number] FUTURE sertraline (ZOLOFT) 100 mg tabletTake 1.5 tablets by mouth once daily.Disp: 135 tabletRfl: 1 ALPRAZolam (XANAX) 0.25 mg tabletTake 1 tablet by mouth once daily as needed for up to 30 days.Disp: 30 tabletRfl: 0 tiZANidine (ZANAFLEX) 4 mg tabletTake 1 tablet by mouth at bedtime as needed.Disp: 30 tabletRfl: 2 CONSULT TO PHYSICAL THERAPY [9032] Order #: [id number]: 1 Prescriptions as of 05/11/2018 Sig: SERTRALINE 100 MG TABLET Take 1.5 tablets by mouth onc* TIZANIDINE 4 MG TABLET Take 1 tablet by mouth at bed* MULTIVITAMIN CHEWABLE TABLET Take by mouth once daily. IBUPROFEN 800 MG TABLET TAKE 1 TABLET BY MOUTH EVERY * PROMETHAZINE 25 MG TABLET TAKE 1 TABLET BY MOUTH EVERY * ALPRAZOLAM 0.25 MG TABLET Take 1 tablet by mouth once d* BIOTIN ORAL Take by mouth once daily. 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 Degenerative disc disease, lumbar [M51.36] INVALID FOR* More... DDD (degenerative disc disease), lumbar [M51.36]INVALID FOR* More... Prescriptions ordered this encounter Disp Refills Start End SERTRALINE 100 MG TABLET 135 * 1 05/11/2018 Class: Med Update Route: ORAL Sig: Take 1.5 tablets by mouth once daily. ALPRAZOLAM 0.25 MG TABLET 30 t* 0 05/11/2018 06/10/2018 Class: Print RX Route: ORAL Sig: Take 1 tablet by mouth once daily as needed for up to 30 days. TIZANIDINE 4 MG TABLET 30 t* 2 05/11/2018 06/10/2018 Route: ORAL Sig: Take 1 tablet by mouth at bedtime as needed. Medications Discontinued During This Encounter sertraline (ZOLOFT) 100 mg tablet 90 t* 1 12/09/2017 05/11/2018 Route: ORAL Sig: Take 1 tablet by mouth once daily. Disc: Reason for discontinue is not on file. ALPRAZolam (XANAX) 0.25 mg tablet 30 t* 0 11/25/2017 05/11/2018 Class: Print RX Route: ORAL Sig: Take 1 tablet by mouth once daily as needed for up to 90 days. Disc: Reason for discontinue is not on file. tiZANidine (ZANAFLEX) 4 mg tablet 30 t* 2 10/28/2017 05/11/2018 Route: ORAL Sig: Take 1 tablet by mouth at bedtime as needed. Disc: Reason for discontinue is not on file. Encounter Status:Closed by Caterina JONES PA-C on 05/11/18 PT ED Observed: 12/02/2017 Status: COMPLETED Source: [place] 11:06 AM [facility] REPOSITORY HNO ID: [id number] Author: Quiana (Rn) JOAQUIN Rainey Service: (none) Author Type: Registered Nurse Type: Patient Education Filed: 12/02/2017 11:06 AM Note Text: POST OP LEARNING RESPONSE INSTRUCTION PROVIDED TO: Patient METHOD OF INSTRUCTION: Written instruction - handouts Verbal instruction PATIENT / FAMILY RESPONSE: Verbalizes understanding of: POST-PROCEDURE INSTRUCTIONS-Correct actions to take to reduce post procedure complications FOLLOW-UP PLAN: Complete - No need for follow-up Patient instructed to call with any further issues SUPPLEMENTAL MATERIAL: None REFERRAL (RECOMMENDATION): None Electronically Signed By: Quiana Rainey RN In Department: [facility] SURGERY XR FLUOROSCOPY Observed: 12/02/2017 Status: F Source: [place] 10:47 AM [facility] REPOSITORY * * *Final Report* * * DATE OF EXAM: Dec 02 2017 10:47AM [facility] [id number] - XR FLUOROSCOPY / PROCEDURE REASON: LEFT L4-L5, L5-S1 FACET NERVE RFA FOR PAIN * * * * Physician Interpretation * * * * INDICATION: LEFT L4-L5, L5-S1 FACET NERVE RFA FOR PAIN TECHNIQUE: Fluoroscopy with 5 views of the lower lumbar spine FLUOROSCOPY TIME: 0:30 FINDINGS/ IMPRESSION: [place] are seen in the vicinity of the lowest 3 facet joints on the left. Please refer to the performing LIP's report. Ortho Assistant: RAZ Transcribe Date/Time: Dec 02 2017 3:19P Dictated by : RAMOS PEÑA MD This examination was interpreted and the report reviewed and electronically signed by: RAMOS PEÑA MD on Dec 02 2017 3:19PM EST [id number] OPERATIVE NO Observed: 12/02/2017 Status: COMPLETED Source: [place] 10:45 AM [facility] OTHER CAMPUS REPOSITORY HNO ID: [id number] Author: Palmer Shah Service: Pain Management Author Type: Physician Type: Operative Report Filed: 12/02/2017 10:46 AM Note Text: PATIENT NAME: Radha Reynolds SERVICE DATE: 12/02/2017 PREOPERATIVE DIAGNOSIS(ES) Lumbar spondylosis without myelopathy Degeneration of lumbar intervertebral disc Lumbar facet arthropathy POSTOPERATIVE DIAGNOSIS(ES): same OPERATION: Left L4,5,S1 Lumbar Facet Medial Branch Nerve RFA under fluoroscopy. ANESTHESIA: versed 4mg, fentanyl 100mcg IV INDICATIONS: The patient had positive diagnostic facet medial branch nerve blocks. The pain overall has improved by greater than 60% and the patient reports an increase in physical activity. Recommend RFA at L4-5, L5-S1. The risks and benefits of the procedure were discussed. Specifically, the risks of bleeding, infection, inadvertent dural puncture, spinal heaches, vasovagal reaction, epidural hematoma, partial or permanent nerve injury were covered. The potential side effects of medications used in procedures including increase in lumbar pain, headaches, facial redness or warmth (flushing), anxiety or mood swings, sleeplessness, fever, high blood sugar, brief reduction in immunity were discussed. The patient expressed understanding of potential risks and wishes to proceed with the procedure. PROCEDURE: LEFT L4,5,S1 FACET MEDIAL BRANCH NERVE RADIOFREQUENCY NEUROTOMY DESCRIPTION OF PROCEDURE: The patient was brought to the fluoroscopy suite. IV access was obtained prior to the procedure. The patient was positioned prone on the fluoroscopy table. Continuous hemodynamic monitoring was initiated including blood pressure and pulse oximetry. IV sedation was administered incrementally to allow the patient to remain comfortable and conversant throughout the procedure. The area of the posterior lumbar area was prepped povidone-iodine three times and draped into a sterile field. Fluoroscopy was used to identify the location of the left side L4-5 and L5-S1 medial branch nerves respectively. Skin anesthesia was achieved using 3 cc of Lidocaine 0.5% over the injection sites. A 20 gauge, 100mm (10mm active tip) curved RF needle was slowly inserted at each level using AP, lateral and oblique fluoroscopic imaging. Negative aspiration for blood or CSF was confirmed. Sensory stimulation at 50Hz below 0.5V was achieved at every level. Motor stimulation at 2Hz up to 1.5V did not cause any radicular symptoms at any level. Each level was anesthetized with 1.5 cc of lidocaine 1%. Radiofrequency lesioning was performed for 90 seconds at 80 degrees at each level. At each level, 1ml of 0.25% Marcaine with 5 mg of Kenalog was injected. The needles were removed and bleeding was nil. A sterile dressing was applied. Radha Reynolds was taken to the Post-block Recovery Area for further observation. EBL: nil Start time: 10:29 AM End time: 10:43 AM I was present the entire time and personally performed the procedure. SIGNATURE: Palmer Shah MD DATE: December 02, 2017 TIME: 10:45 AM HISTORY PHYSICAL Observed: 12/02/2017 Status: COMPLETED Source: [place] 10:22 AM [facility] OTHER [facility] REPOSITORY HNO ID: [id number] Author: Palmer Shah Service: Pain Management Author Type: Physician Type: HANDP Filed: 12/02/2017 10:23 AM Note Text: HISTORY AND PHYSICAL EXAMINATION PATIENT NAME: Radha Reynolds DATE of SERVICE: 12/02/2017 Radha Reynolds is here for the pain mangement procedure. The patient presents with persistent pain complaints. Radha Reynolds denies any interval changes or new pain complaints or focal neurologic deficits. PAST MEDICAL HISTORY Diagnosis Date - DVT complicating (HCC) 2 weeks Post CS - Meniere's disease, unspecified Meniere's disease - MIGRAINE NOS W/O MENTN INTRACTABLE 09/07/2005 - Other anxiety states PAST SURGICAL HISTORY Procedure Laterality Date - APPENDECTOMY - DELIVERY ONLY , low cervical x 3 - LIGATE FALLOPIAN TUBE Tubal ligation - PAST SURGICAL HISTORY OF labyrinthectomy, left Social History Marital status: Spouse name: Years of education: Number of children: 3 Occupational History Occupation Employer Comment Unemployed Social History Main Topics Smoking status: Former Smoker Packs/day: 0.50 Years: 10.00 Types: Cigarettes Smokeless tobacco: Never Used Comment: smokes 1/2 pack per day Alcohol use: Yes Comment: Socially 3 times a year Drug use: No Sexual activity: Yes Partners with: Male control/protection: Tubal Ligation FAMILY HISTORY Problem Relation Age of Onset - Adopted: Yes - adopted [OTHER] Mother - adopted [OTHER] Father ALLERGIES Allergen Reactions - Ct Dye [Other] Other: See Comments low blood pressure with the injectable dye Current Facility-Administered Medications: NaCl 0.9% iv infusion 30 mL/hr INTRAVENOUS CONTINUOUS Physical Exam: Performed in conjunction with observation. The patient is alert and oriented x3. The patient is in no acute distress. Neck: Supple. The range of motion is intact. Lungs: clear CVR: RRR. Extremities: no reported edema or erythema. Examination indicates no changes Impression: Lumbar facet arthropathy Plan: The informed consent has been obtained. The plan is to proceed with the procedure as planned. SIGNATURE: Palmer Shah MD DATE: December 02, 2017 TIME: 10:23 AM PT ED Observed: 12/02/2017 Status: COMPLETED Source: [place] 9:48 AM [facility] REPOSITORY HNO ID: [id number] Author: Alexa (Rn) JOAQUIN Atwood Service: (none) Author Type: Registered Nurse Type: Patient Education Filed: 12/02/2017 9:50 AM Note Text: PRE OP LEARNING ASSESSMENT PROCEDURE/SURGERY: SURGERY: Ablation READINESS TO LEARN COGNITIVE ABILITY: Alert and oriented MOTIVATION TO LEARN: Interested FAMILY SUPPORT: None - Unavailable/disinterested PATIENT LEARNS BEST BY: Individual Instruction Verbal Instruction FACTORS AFFECTING LEARNING: None PHYSICAL LIMITATIONS AFFECTING LEARNING: None Electronically Signed By: Alexa Atwood RN In Department: [facility] SURGERY PROGRESS Observed: 11/25/2017 Status: COMPLETED Source: [place] 12:06 PM [facility] REPOSITORY HNO ID: [id number] Author: Caterina Jones (Pa-C) Service: (none) Author Type: Physician Electrical Prospecting Engineer Type: Progress Notes Filed: 11/25/2017 4:23 PM Note Text: 42 year old female with c/o needs refill Alprazolam for Meniere's. Using very sparingly. Otherwise doing well. Mood is good, Zoloft helps. HISTORIES FAMILY HISTORY Problem Relation Age of Onset - Adopted: Yes - adopted [OTHER] Mother - adopted [OTHER] Father PAST MEDICAL HISTORY Diagnosis Date - DVT complicating (HCC) 2 weeks Post CS - Meniere's disease, unspecified Meniere's disease - MIGRAINE NOS W/O MENTN INTRACTABLE 09/07/2005 - Other anxiety states PAST SURGICAL HISTORY Procedure Laterality Date - APPENDECTOMY - DELIVERY ONLY , low cervical x 3 - LIGATE FALLOPIAN TUBE Tubal ligation - PAST SURGICAL HISTORY OF labyrinthectomy, left Social History Marital status: Spouse name: Years of education: Number of children: 3 Occupational History Occupation Employer Comment Unemployed Social History Main Topics Smoking status: Former Smoker Packs/day: 0.50 Years: 10.00 Types: Cigarettes Smokeless tobacco: Never Used Comment: smokes 1/2 pack per day Alcohol use: Yes Comment: Socially 3 times a year Drug use: No Sexual activity: Yes Partners with: Male control/protection: Tubal Ligation ACTIVE PROBLEM LIST Adjustment Disorder With Depressed Mood Migraine, Unspecified, Without Mention of Intractable Migraine Without Mention of Status Migrainosus Pain in Joint, Site Unspecified Active Meniere's Disease, Cochleovestibular Symptomatic Menopausal Or Female Climacteric States Encounter for Gynecological Examination With Abnormal Finding Left-Sided Low Back Pain With Left-Sided Sciatica Si (Sacroiliac) Joint Dysfunction Degenerative Disc Disease, Lumbar Ddd (Degenerative Disc Disease), Lumbar Current Outpatient Prescriptions: tiZANidine (ZANAFLEX) 4 mg tablet Take 1 tablet by mouth at bedtime as needed. Disp: 30 tablet Rfl: 2 Multivitamins chew Take by mouth once daily. Disp: Rfl: BIOTIN ORAL Take by mouth once daily. Disp: Rfl: ibuprofen (MOTRIN) 800 mg tablet TAKE 1 TABLET BY MOUTH EVERY 8 HOURS NEEDED FOR PAIN OR FEVER (FOR PAIN. TAKE WITH FOOD). Disp: 30 tablet Rfl: 5 sertraline (ZOLOFT) 100 mg tablet TAKE 1 TABLET BY MOUTH ONCE DAILY. Disp: 30 tablet Rfl: 5 promethazine (PHENERGAN) 25 mg tablet TAKE 1 TABLET BY MOUTH EVERY 6 HOURS NEEDED Disp: 30 tablet Rfl: 1 ALPRAZolam (XANAX) 0.25 mg tablet Take 1 tablet by mouth once daily as needed. Disp: 30 tablet Rfl: 0 No current facility-administered medications for this visit. DTAP,TDAP,TD(1 - Tdap) due on 1994 MAMMOGRAM due on 08/21/2017 EXAM: BP 114/64 Pulse 88 Resp 16 Wt 82.6 kg (182 lb) BMI 27.67 kg/m? Pleasant adult female in no acute distress. Alert and oriented all spheres. Normal affect and cognition. Speech normal. No deficits to learning or comprehension. Skin warm, dry, pink to lips and nailbeds. Normal turgor. Respirations regular and unlabored. Extrem: no clubbing, cyanosis, edema. Extremities are warm and pink with prompt capillary refill. ASSESSMENT/PLAN: 1. Active Meniere's disease, cochleovestibular, unspecified laterality - ICD9: 386.01, ICD10: H81.09 - ALPRAZOLAM 0.25 MG TABLET Caterina Jones PA-C CNOV Observed: 11/25/2017 Status: COMPLETED Source: [place] 11:40 AM [facility] REPOSITORY Office Visit (FAMPWS) RADHA REYNOLDS ([id number]) 1975 F Date Time Provider Department 11/25/17 11:40 AM Caterina JONES) FAMPWS During your visit today, we recorded the following information about you: Pulse Respiration Blood pressure Weight 88/minute 16/minute 114/64 82.6 kg Caterina Jones) 11/25/2017 4:23 PM Signed 42 year old female with c/o needs refill Alprazolam for Meniere's. Using very sparingly. Otherwise doing well. Mood is good, Zoloft helps. HISTORIES FAMILY HISTORY Problem Relation Age of Onset - Adopted: Yes - adopted [OTHER] Mother - adopted [OTHER] Father PAST MEDICAL HISTORY Diagnosis Date - DVT complicating (HCC) 2 weeks Post CS - Meniere's disease, unspecified Meniere's disease - MIGRAINE NOS W/O MENTN INTRACTABLE 09/07/2005 - Other anxiety states PAST SURGICAL HISTORY Procedure Laterality Date - APPENDECTOMY - DELIVERY ONLY , low cervical x 3 - LIGATE FALLOPIAN TUBE Tubal ligation - PAST SURGICAL HISTORY OF labyrinthectomy, left Social History Marital status: Spouse name: Years of education: Number of children: 3 Occupational History Occupation Employer Comment Unemployed Social History Main Topics Smoking status: Former Smoker Packs/day: 0.50 Years: 10.00 Types: Cigarettes Smokeless tobacco: Never Used Comment: smokes 1/2 pack per day Alcohol use: Yes Comment: Socially 3 times a year Drug use: No Sexual activity: Yes Partners with: Male control/protection: Tubal Ligation ACTIVE PROBLEM LIST Adjustment Disorder With Depressed Mood Migraine, Unspecified, Without Mention of Intractable Migraine Without Mention of Status Migrainosus Pain in Joint, Site Unspecified Active Meniere's Disease, Cochleovestibular Symptomatic Menopausal Or Female Climacteric States Encounter for Gynecological Examination With Abnormal Finding Left-Sided Low Back Pain With Left-Sided Sciatica Si (Sacroiliac) Joint Dysfunction Degenerative Disc Disease, Lumbar Ddd (Degenerative Disc Disease), Lumbar Current Outpatient Prescriptions: tiZANidine (ZANAFLEX) 4 mg tablet Take 1 tablet by mouth at bedtime as needed. Disp: 30 tablet Rfl: 2 Multivitamins chew Take by mouth once daily. Disp: Rfl: BIOTIN ORAL Take by mouth once daily. Disp: Rfl: ibuprofen (MOTRIN) 800 mg tablet TAKE 1 TABLET BY MOUTH EVERY 8 HOURS NEEDED FOR PAIN OR FEVER (FOR PAIN. TAKE WITH FOOD). Disp: 30 tablet Rfl: 5 sertraline (ZOLOFT) 100 mg tablet TAKE 1 TABLET BY MOUTH ONCE DAILY. Disp: 30 tablet Rfl: 5 promethazine (PHENERGAN) 25 mg tablet TAKE 1 TABLET BY MOUTH EVERY 6 HOURS NEEDED Disp: 30 tablet Rfl: 1 ALPRAZolam (XANAX) 0.25 mg tablet Take 1 tablet by mouth once daily as needed. Disp: 30 tablet Rfl: 0 No current facility-administered medications for this visit. DTAP,TDAP,TD(1 - Tdap) due on 1994 MAMMOGRAM due on 08/21/2017 EXAM: BP 114/64 Pulse 88 Resp 16 Wt 82.6 kg (182 lb) BMI 27.67 kg/m? Pleasant adult female in no acute distress. Alert and oriented all spheres. Normal affect and cognition. Speech normal. No deficits to learning or comprehension. Skin warm, dry, pink to lips and nailbeds. Normal turgor. Respirations regular and unlabored. Extrem: no clubbing, cyanosis, edema. Extremities are warm and pink with prompt capillary refill. ASSESSMENT/PLAN: 1. Active Meniere's disease, cochleovestibular, unspecified laterality - ICD9: 386.01, ICD10: H81.09 - ALPRAZOLAM 0.25 MG TABLET M Jordon Jones PA-C Referring Provider: SELF [[id number]] Allergies As of Date: 11/25/[address] dye [Other] 02/02/2005 14 - Other: See Comments Comments: low blood pressure with the injectable dye Date Reviewed: 11/25/2017 Reviewed by: Veronica Haji Ma - Fully Assessed Reason for Visit: Meniere's Disease [567] Cmt: medication refill Visit Diagnosis:Active Meniere's disease, cochleovestibular, unspecified laterality [H81.09] Order(s):ALPRAZolam (XANAX) 0.25 mg tabletTake 1 tablet by mouth once daily as needed for up to 90 days.Disp: 30 tabletRfl: 0 Prescriptions as of 11/25/2017 Sig: TIZANIDINE 4 MG TABLET Take 1 tablet by mouth at bed* MULTIVITAMIN CHEWABLE TABLET Take by mouth once daily. BIOTIN ORAL Take by mouth once daily. IBUPROFEN 800 MG TABLET TAKE 1 TABLET BY MOUTH EVERY * SERTRALINE 100 MG TABLET TAKE 1 TABLET BY MOUTH ONCE D* PROMETHAZINE 25 MG TABLET TAKE 1 TABLET BY MOUTH EVERY * ALPRAZOLAM 0.25 MG TABLET Take 1 tablet by mouth once d* Problem List As Of Date 11/25/2017 Noted Resolved ADJUSTMENT DISORDER WITH DEPRESSED MOOD [F43.21]INVALID FOR* MIGRAINE NOS W/O MENTN INTRACTABLE [G43.909] INVALID FOR* JOINT PAIN-UNSPEC [M25.50] INVALID FOR* Peripheral vertigo, unspecified [H81.399] INVALID FOR*12/02/2011 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 Degenerative disc disease, lumbar [M51.36] INVALID FOR* More... DDD (degenerative disc disease), lumbar [M51.36]INVALID FOR* More... Prescriptions ordered this encounter Disp Refills Start End ALPRAZOLAM 0.25 MG TABLET 30 t* 0 11/25/2017 02/23/2018 Class: Print RX Route: ORAL Sig: Take 1 tablet by mouth once daily as needed for up to 90 days. Medications Discontinued During This Encounter ALPRAZolam (XANAX) 0.25 mg tablet 30 t* 0 05/14/2017 11/25/2017 Class: Call Rx Route: ORAL Sig: Take 1 tablet by mouth once daily as needed. Disc: Reason for discontinue is not on file. Encounter Status:Closed by Caterina JONES PA-C on 11/25/17 ANAMARIA Observed: 10/28/2017 Status: COMPLETED Source: [place] 3:00 PM [facility] REPOSITORY Office Visit (PNMDNA) DEMETRIARADHA Scherer ([id number]) 1975 F Date Time Provider Department 10/28/17 3:00 PM OMID ALCANTAR (SHOP GIRL) PNMDNA During your visit today, we recorded the following information about you: Pulse Weight 70/minute 83 kg Omid Alcantar APRN.CNP 10/28/2017 1:33 PM Signed SUBJECTIVE: Radha Reynolds presents to [facility] for a followup appointment for left low back pain and injection follow up. Since the last visit, Radha Niesha Reynolds states the pain has been constant. Current pain intensity is 6 on a scale of 0-10. Pain located in left low Back area and radiates down the posterior leg. Pain described as aching, dull, numbness, pressure, severe, tight band and tingling The patient Reports numbness, tingling, morning stiffness and leg pain. Symptoms interfere with physical activity. Pain is exacerbated by sitting, standing, lifting, getting up from sitting and lying down. Pain is mitigated by physical therapy and injections. Improvement with both prior facet injections was 80%. REVIEW OF SYSTEMS: Constitutional: (-) Fever (+) Night Sweats (-) Weight Gain (-) Weight Loss (-) Fatigue Cardiovascular: (-) Chest Pain (-) Palpitations (-) Lightheadedness (-) Swelling of Ankles (-) Hx Heart Surgery Respiratory: (-) Shortness of Breath (-) Cough (-) Wheezing (-) Snoring Gastrointestinal: (-) Incontinence (-) Abdominal Pain (-) Diarrhea (-) Constipation (-) Nausea/Vomiting (-) Heart Burn Endocrine: (-) Thyroid Disorder (-) Diabetes Hematologic: (-) Prolonged Bleeding (-) Easy Bruising Genitourinary: (-) Incontinence (-) Frequency (-) Urinary Urgency Skin: (-) Rashes (-) Itching (-) Other Lesions Neurologic: (+) Headache (-) Double Vision (-) Confusion (-) Paralysis Psychiatric: (-) Depression (+) Anxiety (-) Delusions (-) Hallucinations (-) Personal History of Alcohol or Substance Abuse (-) Family History of Alcohol or Substance Abuse OBJECTIVE: Pulse 70 Wt 182 lb 14.4 oz (83.0kg) SpO2 95% PHYSICAL EXAMINATION: General appearance: Well appearing, in no acute distress, alert Skin: Skin color, texture, turgor normal, no rashes or lesions Neck: No pain to palpation over the cervical paraspinous muscles. Spurling Negative. No pain with neck flexion, extension, or lateral flexion Abdomen: Abdomen soft and non-tender. Back: Normal range of motion without pain reproduction. Spine: Reports Tenderness on palpation: Lumbar/Pelvic left side Extremities: No deformities, edema, or skin discoloration. Good capillary refill. Musculoskeletal:Bilateral upper and lower extremity strength is normal and symmetric. No atrophy or tone abnormalities are noted. Neuro: No loss of sensation is noted. Station and Gait: Normal stance, normal gait. Motor: Exhibits full strength in all four extremities. Trigger points: none. ASSESSMENT: Assessment : Pt reports lower back pain that radiates down the left LE posteriorly. She had her x2 facet L4,5,S1 injection on 09-07-17 and 10/05/17 and reports 80% pain relief She attends the gym x5 days a week She takes motrin 800 mg as needed for inflammation and swelling Encounter Diagnosis ICD-10-CM 1. SI (sacroiliac) joint dysfunction M53.3 2. Left-sided low back pain with left-sided sciatica, unspecified chronicity M54.42 3. Degenerative disc disease, lumbar M51.36 OARRS website checked and validated. All prescriptions have been APPROPRIATELY filled. No suspicious activity was identified.- 10/28/2017 by Aury Herman Narcotic Agreement reviewed and signed?: N/A on October 28, 2017 The pain panel was N/A PLAN: 1) Ordered ?Left??(L4,5,S1) lumbar radiofrequency ablation with fluoroscopy. Schedule December 02. 2) Pt is active and attends the gym x5 days a week 3) Start tizanidine 4 mg at bedtime for muscle stiffness 4) Continue with motrin 800 mg 5) RTC 2 months after injection The above plan and management options were discussed at length with patient. Patient is in agreement with the above and verbalized understanding. Omid Alcantar APRN.SH[facility] GIRL October 28, 2017 Referring Provider: Caterina JONES (OLGA) [[id number]] Allergies As of Date: 10/28/[address] dye [Other] 02/02/2005 14 - Other: See Comments Comments: low blood pressure with the injectable dye Date Reviewed: 10/28/2017 Reviewed by: Aury Herman - Fully Assessed Reason for Visit: Established Patient [175] Cmt: Low back pain/follow up from injection Primary Visit Diagnosis:SI (sacroiliac) joint dysfunction [M53.3] Other Visit Diagnoses:Left-sided low back pain with left- sided sciatica, unspecified chronicity [M54.42] Degenerative disc disease, lumbar [M51.36] [facility] SNGL LMBR/SACRAL [[id number]] [facility]: [id number] [facility] F[facility] ADDL LMBR/SACRAL [[id number]] Order #: [id number] tiZANidine (ZANAFLEX) 4 mg tabletTake 1 tablet by mouth at bedtime as needed.Disp: 30 tabletRfl: 2 Prescriptions as of 10/28/2017 Sig: MULTIVITAMIN CHEWABLE TABLET Take by mouth once daily. BIOTIN ORAL Take by mouth once daily. IBUPROFEN 800 MG TABLET TAKE 1 TABLET BY MOUTH EVERY * SERTRALINE 100 MG TABLET TAKE 1 TABLET BY MOUTH ONCE D* PROMETHAZINE 25 MG TABLET TAKE 1 TABLET BY MOUTH EVERY * ALPRAZOLAM 0.25 MG TABLET Take 1 tablet by mouth once d* TIZANIDINE 4 MG TABLET Take 1 tablet by mouth at bed* Problem List As Of Date 10/28/2017 Noted Resolved ADJUSTMENT DISORDER WITH DEPRESSED MOOD [F43.21]INVALID FOR* MIGRAINE NOS W/O MENTN INTRACTABLE [G43.909] INVALID FOR* JOINT PAIN-UNSPEC [M25.50] INVALID FOR* Peripheral vertigo, unspecified [H81.399] INVALID FOR*12/02/2011 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 Degenerative disc disease, lumbar [M51.36] INVALID FOR* More... Prescriptions ordered this encounter Disp Refills Start End TIZANIDINE 4 MG TABLET 30 t* 2 10/28/2017 11/27/2017 Route: ORAL Sig: Take 1 tablet by mouth at bedtime as needed. Encounter Status:Closed by OMID ALCANTAR on 10/28/17 PROGRESS Observed: 10/28/2017 Status: COMPLETED Source: [place] 12:58 PM [facility] RE[facility] HNO ID: [id number] Author: Omid Diggs (Fritz Alcantar Service: (none) Author Type: Nurse Practitioner Type: Progress Notes Filed: 10/28/2017 1:33 PM Note Text: SUBJECTIVE: Radha Reynolds presents to [facility] for a followup appointment for left low back pain and injection follow up. Since the last visit, Radha Reynolds states the pain has been constant. Current pain intensity is 6 on a scale of 0-10. Pain located in left low Back area and radiates down the posterior leg. Pain described as aching, dull, numbness, pressure, severe, tight band and tingling The patient Reports numbness, tingling, morning stiffness and leg pain. Symptoms interfere with physical activity. Pain is exacerbated by sitting, standing, lifting, getting up from sitting and lying down. Pain is mitigated by physical therapy and injections. Improvement with both prior facet injections was 80%. REVIEW OF SYSTEMS: Constitutional: (-) Fever (+) Night Sweats (-) Weight Gain (-) Weight Loss (-) Fatigue Cardiovascular: (-) Chest Pain (-) Palpitations (-) Lightheadedness (-) Swelling of Ankles (-) Hx Heart Surgery Respiratory: (-) Shortness of Breath (-) Cough (-) Wheezing (-) Snoring Gastrointestinal: (-) Incontinence (-) Abdominal Pain (-) Diarrhea (-) Constipation (-) Nausea/Vomiting (-) Heart Burn Endocrine: (-) Thyroid Disorder (-) Diabetes Hematologic: (-) Prolonged Bleeding (-) Easy Bruising Genitourinary: (-) Incontinence (-) Frequency (-) Urinary Urgency Skin: (-) Rashes (-) Itching (-) Other Lesions Neurologic: (+) Headache (-) Double Vision (-) Confusion (-) Paralysis Psychiatric: (-) Depression (+) Anxiety (-) Delusions (-) Hallucinations (-) Personal History of Alcohol or Substance Abuse (-) Family History of Alcohol or Substance Abuse OBJECTIVE: Pulse 70 Wt 182 lb 14.4 oz (83.0kg) SpO2 95% PHYSICAL EXAMINATION: General appearance: Well appearing, in no acute distress, alert Skin: Skin color, texture, turgor normal, no rashes or lesions Neck: No pain to palpation over the cervical paraspinous muscles. Spurling Negative. No pain with neck flexion, extension, or lateral flexion Abdomen: Abdomen soft and non-tender. Back: Normal range of motion without pain reproduction. Spine: Reports Tenderness on palpation: Lumbar/Pelvic left side Extremities: No deformities, edema, or skin discoloration. Good capillary refill. Musculoskeletal:Bilateral upper and lower extremity strength is normal and symmetric. No atrophy or tone abnormalities are noted. Neuro: No loss of sensation is noted. Station and Gait: Normal stance, normal gait. Motor: Exhibits full strength in all four extremities. Trigger points: none. ASSESSMENT: Assessment : Pt reports lower back pain that radiates down the left LE posteriorly. She had her x2 facet L4,5,S1 injection on 09-07-17 and 10/05/17 and reports 80% pain relief She attends the gym x5 days a week She takes motrin 800 mg as needed for inflammation and swelling Encounter Diagnosis ICD-10-CM 1. SI (sacroiliac) joint dysfunction M53.3 2. Left-sided low back pain with left-sided sciatica, unspecified chronicity M54.42 3. Degenerative disc disease, lumbar M51.36 OARRS website checked and validated. All prescriptions have been APPROPRIATELY filled. No suspicious activity was identified.- 10/28/2017 by Aury Herman Narcotic Agreement reviewed and signed?: N/A on October 28, 2017 The pain panel was N/A PLAN: 1) Ordered ?Left??(L4,5,S1) lumbar radiofrequency ablation with fluoroscopy. Schedule December 02. 2) Pt is active and attends the gym x5 days a week 3) Start tizanidine 4 mg at bedtime for muscle stiffness 4) Continue with motrin 800 mg 5) RTC 2 months after injection The above plan and management options were discussed at length with patient. Patient is in agreement with the above and verbalized understanding. Omid Alcantar APRN.SHOP GIRL October 28, 2017 HOSP Observed: 10/28/2017 Status: COMPLETED Source: [place] 12:00 AM [facility] REPOSITORY Patient:Radha Reynolds MRN: <[id number]> Height:5' 8(1.727 m) Weight:182 lb (82.555 kg) Outpatient Medications as of 12/02/17: ALPRAZolam (XANAX) 0.25 mg tablet tiZANidine (ZANAFLEX) 4 mg tablet Multivitamins chew BIOTIN ORAL ibuprofen (MOTRIN) 800 mg tablet sertraline (ZOLOFT) 100 mg tablet promethazine (PHENERGAN) 25 mg tablet Admission/Clinic Administered Medications as of 12/02/17: NaCl 0.9% iv infusion Problem List: Adjustment disorder with depressed mood [F43.21] Migraine, unspecified, without mention of intractable migraine without mention of status migrainosus [G43.909] Pain in joint, site unspecified [M25.50] Active Meniere's disease, 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] Symptomatic menopausal or female climacteric states [N95.1] Encounter for gynecological examination with abnormal finding [Z01.411] Left-sided low back pain with left-sided sciatica [M54.42] SI (sacroiliac) joint dysfunction [M53.3] Degenerative disc disease, lumbar [M51.36] DDD (degenerative disc disease), lumbar [M51.36] Allergies: ct dye [Other] Date Verified: 12/02/17 Lab Values No results within the last 30 days for the following basenames: K,HCT Progress Notes ([facility]): Caterina Jones PA-C 11/25/2017 4:23 PM Signed 42 year old female with c/o needs refill Alprazolam for Meniere's. Using very sparingly. Otherwise doing well. Mood is good, Zoloft helps. HISTORIES FAMILY HISTORY Problem Relation Age of Onset - Adopted: Yes - adopted [OTHER] Mother - adopted [OTHER] Father PAST MEDICAL HISTORY Diagnosis Date - DVT complicating (HCC) 2 weeks Post CS - Meniere's disease, unspecified Meniere's disease - MIGRAINE NOS W/O MENTN INTRACTABLE 09/07/2005 - Other anxiety states PAST SURGICAL HISTORY Procedure Laterality Date - APPENDECTOMY - DELIVERY ONLY , low cervical x 3 - LIGATE FALLOPIAN TUBE Tubal ligation - PAST SURGICAL HISTORY OF labyrinthectomy, left Social History Marital status: Spouse name: Years of education: Number of children: 3 Occupational History Occupation Employer Comment Unemployed Social History Main Topics Smoking status: Former Smoker Packs/day: 0.50 Years: 10.00 Types: Cigarettes Smokeless tobacco: Never Used Comment: smokes 1/2 pack per day Alcohol use: Yes Comment: Socially 3 times a year Drug use: No Sexual activity: Yes Partners with: Male control/protection: Tubal Ligation ACTIVE PROBLEM LIST Adjustment Disorder With Depressed Mood Migraine, Unspecified, Without Mention of Intractable Migraine Without Mention of Status Migrainosus Pain in Joint, Site Unspecified Active Meniere's Disease, Cochleovestibular Symptomatic Menopausal Or Female Climacteric States Encounter for Gynecological Examination With Abnormal Finding Left-Sided Low Back Pain With Left-Sided Sciatica Si (Sacroiliac) Joint Dysfunction Degenerative Disc Disease, Lumbar Ddd (Degenerative Disc Disease), Lumbar Current Outpatient Prescriptions: tiZANidine (ZANAFLEX) 4 mg tablet Take 1 tablet by mouth at bedtime as needed. Disp: 30 tablet Rfl: 2 Multivitamins chew Take by mouth once daily. Disp: Rfl: BIOTIN ORAL Take by mouth once daily. Disp: Rfl: ibuprofen (MOTRIN) 800 mg tablet TAKE 1 TABLET BY MOUTH EVERY 8 HOURS NEEDED FOR PAIN OR FEVER (FOR PAIN. TAKE WITH FOOD). Disp: 30 tablet Rfl: 5 sertraline (ZOLOFT) 100 mg tablet TAKE 1 TABLET BY MOUTH ONCE DAILY. Disp: 30 tablet Rfl: 5 promethazine (PHENERGAN) 25 mg tablet TAKE 1 TABLET BY MOUTH EVERY 6 HOURS NEEDED Disp: 30 tablet Rfl: 1 ALPRAZolam (XANAX) 0.25 mg tablet Take 1 tablet by mouth once daily as needed. Disp: 30 tablet Rfl: 0 No current facility-administered medications for this visit. DTAP,TDAP,TD(1 - Tdap) due on 1994 MAMMOGRAM due on 08/21/2017 EXAM: BP 114/64 Pulse 88 Resp 16 Wt 82.6 kg (182 lb) BMI 27.67 kg/m? Pleasant adult female in no acute distress. Alert and oriented all spheres. Normal affect and cognition. Speech normal. No deficits to learning or comprehension. Skin warm, dry, pink to lips and nailbeds. Normal turgor. Respirations regular and unlabored. Extrem: no clubbing, cyanosis, edema. Extremities are warm and pink with prompt capillary refill. ASSESSMENT/PLAN: 1. Active Meniere's disease, cochleovestibular, unspecified laterality - ICD9: 386.01, ICD10: H81.09 - ALPRAZOLAM 0.25 MG TABLET Caterina Jones PA-C Progress Notes ([facility]): Jossy Goodwin Ed 11/23/2017 8:26 AM Signed Patient has been identified by name and date of : Yes Pending Prescriptions Disp Refills ALPRAZOLAM 0.25 MG TABLET 30 tablet Sig: Take 1 tablet by mouth once daily as needed. [place] Class: C-IV UMM: Yes RX INSTRUCTIONS: Patient aware RX will be sent to pharmacy. No need to notify patient. Last office visit:01/20/17 Next office visit:none scheduled Last refill:05/14/17 30 tablets Jossy Goodwin Ed Stevens LPN 11/23/2017 11:03 AM Signed PATIENT NOTIFIED OF need for an appointment for further refills. EMERGENCY DEPARTMENT Observed: 10/17/2017 Status: F Source: [place] SUMMARY 10:04 PM [facility] REPOSITORY [facility] Medical Records Department [address] [place] [id number] Emergency Department Summary 10/17/17 0405 MR#: [id number] Acct: [id number] Name: RADHA REYNOLDS Rep #: [id number] : 1975 42 From: Michael Manjarrez DO PCP: Caterina Jones Status: DEP ER - ER Visit Summary Date of Service: 10/17/17 Chief Complaint: [] Alcohol intoxication History of Present Illness: The patient is a 42 F [] complaining of alcohol intoxication. Patient was brought in by local police as she over consumed alcohol at a local tavern and it was felt that she needed medical attention. She was physically aggressive upon arrival and required immediate physical restraints. Remainder of history was unable to be obtained. Physical Examination: [] Intoxicated female no acute distress cardiovascular exam is regular rate and rhythm. Lungs clear to auscultation. Abdomen is soft and nontender. Test Results: [] CBC, BMP, LFTs normal. Serum EtOH was obtained approximately 1.5 hours after her arrival as she was very belligerent and agitated. This measured as 0.221. Emergency Department Course and Treatment: [] Patient was placed in physical restraints and was still agitated and received 20 IM Geodon for chemical restraint. She was observed for approximately 3- 1/2 hours when a family member called and requested to take her home and watch over her. She was more awake and alert after approximately 3 and half hours and was removed from physical restraints and was turned over in the care of her family member. Treatment Plan: [] Follow-up with PCP. Discontinue alcohol consumption. Disposition: [] Discharge, stable. Impression: [] Alcohol intoxication This note was generated with [employer] dictation software. It may contain incorrect words, spelling, and punctuation that were not noted in review of the chart prior to signing ED Disposition - Plan for ED Patient: Disposition: Home or Assisted Living Chief Complaint: ETOH Intox Referrals: Caterina Jones PA [Primary Care Provider] - What to do if you have Problems For any increased pain, shortness of breath, bleeding, nausea or vomiting, chest pain, or any unexpected problems, contact your Primary Care Provider. Call [facility] ([phone]) or report to the closest Emergency Room. Call 911 if necessary. 10/17/172203 <Electronically signed by Michael Manjarrez DO> Date Michael Manjarrez DO Cosigner Signature (If Indicated): Date CC: Caterina Jones CBC W/DIFF, AUTOMATED Collected: 10/17/2017 Status: F Source: [place] 1:20 AM [facility] REPOSITORY TYPE CODE TESTS RESULT OUT OF RANGE REFERENCE UNITS LAB L100.1000 4.4-11.0 K/mm3 Normal WBC 6.9 LAB L100.1200 4.2-5.4 M/mm3 Normal RBC 4.27 LAB L100.1300 12.0-15.0 g/dl Normal HGB 12.0 LAB L100.1400 37-47 % Normal HCT 37.3 LAB L100.1500 81-99 fL Normal MCV 87.4 LAB L100.1600 27.0-32.0 pg Normal MCH 28.1 LAB L100.1700 32-36 g/gl Normal MCHC 32.2 LAB L100.1810 11.6-14.6 % Normal RDW CV 13.8 LAB L100.1820 35.1-43.9 fl Normal RDW SD 43.8 LAB L100.1900 150-450 K/mm3 Normal PLT 357 LAB L100.2000 6.2-12.0 fl Normal MPV 9.2 LAB L100.2100 47-70 % Normal NEUT% 47.6 LAB L100.2200 19-41 % High LY% 42.5 LAB L100.2300 0-10 % Normal MONO% 8.1 LAB L100.2400 0-5 % Normal EO% 1.0 LAB L100.2500 0-1 % Normal BASO% 0.7 LAB L100.2550 0.0-0.9 % Normal IM GRAN % 0.100 Result Comment: IG% - Immature Granulocytes (promyelocytes, myelocytes and metamyelocytes) > 1% indicates that a LEFT SHIFT is Present. LAB L100.2620 2.0-7.7 X10 3/uL Normal Absolute Neut 3.3 LAB L100.2720 0.83-4.51 X10 3/ul Normal Absolute Lymph 2.93 Performed By: #### L100.0100 #### [facility] [address] [place], [address] COMPREHENSIVE METABOLIC Collected: 10/17/2017 Status: F Source: [facility] 1:20 AM [facility] REPOSITORY TYPE CODE TESTS RESULT OUT OF RANGE REFERENCE UNITS LAB L501.0100 74-106 mg/dL Normal GLU 93 Result Comment: Please note revised GLUCOSE reference range effective 2017. LAB L501.1000 7-18 mg/dL Normal BUN 18 LAB L501.1100 0.55-1.02 mg/dL Normal CREAT,SERUM 0.76 Result Comment: The validity of the calculated GFR AND GFRAA in patients over 70 years has not been determined. Clinical correlation is essential. LAB L501.1110 >60 mL/min Normal EST GFR 88 Result Comment: Non- GFR Calc LAB L501.1115 >60 mL/min Normal EST GFR - AA 107 Result Comment: GFR Calc LAB L501.1255 ml/min Normal Estimated CRCL 100.78 LAB L501.1300 10-20 RATIO High BUN/CRE 23.6 LAB L501.1500 6.4-8. g/dL 2 T PROT Normal 7.2 LAB L501.1800 3.2-5. g/dL 0 ALB Normal 3.6 LAB L501.1950 2.2-4. g/dL 2 GLOB Normal 3.6 LAB L501.2000 0.9-2. RATIO 4 A/G Normal 1.0 LAB L501.2200 8.5-10 mg/dL Low .1 CA 8.4 LAB L501.4100 15-37 U/L AST Normal 16 LAB L501.4305 45-117 U/L ALK P Normal 72 LAB L501.4405 13-56 U/L ALT Normal 15 Result Comment: Please note revised ALT reference range effective 2017. LAB L501.4600 0.20-1.00 mg/dL Normal T BILI 0.50 LAB L501.5300 136-145 mmol/L Normal NA 143 LAB L501.5600 3.5-5.1 mmol/L Normal K 3.7 LAB L501.5900 98-107 mmol/L High CL 110 LAB L501.6100 21.0-32.0 mmol/L Normal CO2 23.0 LAB L501.6200 5-15 Normal GAP 10 Performed By: #### L500.4050 #### [facility] [address] [place], [address] ALCOHOL, BLOOD Collected: 10/17/2017 Status: F Source: [place] [facility] 1:20 AM [facility] REPOSITORY TYPE CODE TESTS RESULT OUT OF RANGE REFERENCE UNITS LAB L501.9100 mg/dL Normal SERUM 221.0 ETOH Result Comment: The serum:whole blood ethanol ratio is approximately 1.14 and varies slightly with hematocrit. Medical Alcohol reference interval and critical value in non-tolerant individuals; 50 - 100 Impairment 100 Intoxication 100 - 250 Severe Poisoning 250 - 400 Deep/possible fatal coma Performed By: #### L501.9100 #### [facility] [address] [place], [place], [address] PT ED Observed: 10/05/2017 Status: COMPLETED Source: [place] 1:02 PM [facility] OTHER [facility] REPOSITORY HNO ID: [id number] Author: Patricia CurryRn) JOAQUIN Isbell Service: Nursing Author Type: Registered Nurse Type: Patient Education Filed: 10/05/2017 1:02 PM Note Text: POST OP LEARNING RESPONSE INSTRUCTION PROVIDED TO: Patient METHOD OF INSTRUCTION: Written instruction - handouts Verbal instruction PATIENT / FAMILY RESPONSE: Verbalizes understanding of: INFECTION MANAGEMENT-Signs and symptoms of an infection and importance of contacting the physician PAIN MANAGEMENT-Effective strategies to manage pain in addition to pain medication POST-PROCEDURE INSTRUCTIONS-Correct actions to take to reduce post procedure complications PATIENT SAFETY PRINCIPLES FOLLOW-UP PLAN: Patient instructed to call with any further issues Contact information given. SUPPLEMENTAL MATERIAL: None REFERRAL (RECOMMENDATION): None Electronically Signed By: Patricia Isbell RN In Department: [facility] SURGERY PT ED Observed: 10/05/2017 Status: COMPLETED Source: [place] 12:46 PM [facility] REPOSITORY HNO ID: [id number] Author: Dahlia Davies) JOAQUIN Collier Service: Nursing Author Type: Registered Nurse Type: Patient Education Filed: 10/05/2017 12:46 PM Note Text: PRE OP LEARNING ASSESSMENT PROCEDURE/SURGERY: epidural injection READINESS TO LEARN COGNITIVE ABILITY: Alert and oriented MOTIVATION TO LEARN: Interested FAMILY SUPPORT: High - Very involved in pt care PATIENT LEARNS BEST BY: Verbal Instruction FACTORS AFFECTING LEARNING: None PHYSICAL LIMITATIONS AFFECTING LEARNING: None Electronically Signed By: Dahlia Collier RN In Department: [facility] SURGERY XR FLUOROSCOPY Observed: 10/05/2017 Status: F Source: [place] 12:18 PM [facility] REPOSITORY * * *Final Report* * * DATE OF EXAM: Oct 05 2017 12:18PM MDR [id number] - XR FLUOROSCOPY / PROCEDURE REASON: PAIN - LEFT L4, L5, S1 * * * * Physician Interpretation * * * * History: Pain Findings: 2 fluoroscopic views submitted. [place] were placed at the L4, L5, and S1 levels on the left. Please see detailed procedural report. Fluoroscopic imaging was performed using a total radiation exposure time of 0:22 min and an effective radiation dose of 6.1 mGy. Ortho Assistant: RAZ Transcribe Date/Time: Oct 05 2017 2:21P Dictated by : CARLI CUNNINGHAM MD This examination was interpreted and the report reviewed and electronically signed by: CARLI CUNNINGHAM MD on Oct 05 2017 2:21PM EST [id number] OPERATIVE NO Observed: 10/05/2017 Status: COMPLETED Source: [place] 12:12 PM [facility] OTHER CAMPUS REPOSITORY O ID: [id number] Author: Palmer Shah Service: Pain Management Author Type: Physician Type: Operative Report Filed: 10/05/2017 12:12 PM Note Text: PATIENT NAME: Radha Reynolds SERVICE DATE: 10/05/2017 PROCEDURE NOTE PREOPERATIVE DIAGNOSIS(ES) Lumbar Spondylosis Lumbar Degerative Disc Disease POSTOPERATIVE DIAGNOSIS(ES): Same OPERATION: Left Lumbar Facet Medial Branch Nerve (L4,5,S1) Blockunder fluoroscopy. ? ANESTHESIA: versed 4mg IV ? ? INDICATIONS: Radha Reynolds presents for lumbar facet (medial branch) injections. Since the last visit, the patient denies any new pain complaints and denies any focal neurological deficits. The plan is to proceed with diagnostic lumbar facet medial branch nerve block. The risks and benefits of the procedure were discussed. Specifically, the risks of bleeding, infection, inadvertent dural puncture, spinal heaches, vasovagal reaction, epidural hematoma, partial or permanent nerve injury were covered. The potential side effects of medications used in procedures including increase in lumbar pain, headaches, facial redness or warmth (flushing), anxiety or mood swings, sleeplessness, fever, high blood sugar, brief reduction in immunity were discussed. The patient expressed understanding of potential risks and wishes to proceed with the procedure. ? OPERATIVE PROCEDURE: The patient was brought to the operating room. The patient was placed in the prone position with routine monitors placed. The lower back was prepped in sterile fashion. Fluoroscopy was used to identify the location of the left L4, and L5 medial branch nerves at the junctions of the superior articular process and the transverse processes of L4, L5, and the sacral ala respectively. Skin anesthesia was achieved using 10 cc of Lidocaine 1% over the injection sites. A 22 gauge, 3 1/2 spinal needle was slowly inserted at each level using AP, lateral and oblique fluoroscopic imaging. Negative aspiration for blood or CSF was confirmed. A total of 3ml of a medication mixture of 5mg of Kenalog per 1ml of Marcaine 0.25% was injected. A total of 3 sites were injected in equal and divided doses. The needles were removed and bleeding was nil. A sterile dressing was applied. The patient tolerated the procedure well. The patient was taken to the recovery room in stable condition. EBL: nil Start time: 12:04 PM End time: 12:11 PM I was present the entire time and personally performed the procedure. SIGNATURE: Palmer Shah MD DATE: October 05, 2017 TIME: 12:12 PM HISTORY PHYSICAL Observed: 10/05/2017 Status: COMPLETED Source: [place] 11:53 AM [facility] REPOSITORY HNO ID: [id number] Author: Palmer Shah Service: Pain Management Author Type: Physician Type: HANDP Filed: 10/05/2017 11:54 AM Note Text: HISTORY AND PHYSICAL EXAMINATION PATIENT NAME: Radha Reynolds DATE of SERVICE: 10/05/2017 Radha Reynolds is here for the pain mangement procedure. The patient presents with persistent pain complaints. Radha Reynolds denies any interval changes or new pain complaints or focal neurologic deficits. PAST MEDICAL HISTORY Diagnosis Date - DVT complicating (HCC) 2 weeks Post CS - Meniere's disease, unspecified Meniere's disease - MIGRAINE NOS W/O MENTN INTRACTABLE 09/07/2005 - Other anxiety states PAST SURGICAL HISTORY Procedure Laterality Date - APPENDECTOMY - DELIVERY ONLY , low cervical x 3 - LIGATE FALLOPIAN TUBE Tubal ligation - PAST SURGICAL HISTORY OF labyrinthectomy, left Social History Marital status: Spouse name: Years of education: Number of children: 3 Occupational History Occupation Employer Comment Unemployed Social History Main Topics Smoking status: Former Smoker Packs/day: 0.50 Years: 10.00 Types: Cigarettes Smokeless status: Never Used Comment: smokes 1/2 pack per day Alcohol use: Yes Comment: Socially 3 times a year Drug use: No Sexual activity: Yes Partners with: Male control/protection: Tubal Ligation FAMILY HISTORY Problem Relation Age of Onset - Adopted: Yes - adopted [OTHER] Mother - adopted [OTHER] Father ALLERGIES Allergen Reactions - Ct Dye [Other] Other: See Comments low blood pressure with the injectable dye Current Facility-Administered Medications: NaCl 0.9% iv infusion 30 mL/hr INTRAVENOUS CONTINUOUS Physical Exam: Performed in conjunction with observation. The patient is alert and oriented x3. The patient is in no acute distress. Neck: Supple. The range of motion is intact. Lungs: clear CVR: RRR. Extremities: no reported edema or erythema. Examination indicates no changes Impression: Lumbar Spondylosis Lumbar DDD Plan: The informed consent has been obtained. The plan is to proceed with the procedure as planned. SIGNATURE: Palmer Shah MD DATE: October 05, 2017 TIME: 11:53 AM PT ED Observed: 09/07/2017 Status: COMPLETED Source: [place] 10:18 AM [facility] REPOSITORY HNO ID: [id number] Author: Marcus (Rn) JOAQUIN Mitchell Service: Nursing Author Type: Registered Nurse Type: Patient Education Filed: 09/07/2017 10:19 AM Note Text: POST OP LEARNING RESPONSE INSTRUCTION PROVIDED TO: Patient METHOD OF INSTRUCTION: Written instruction - handouts Verbal instruction PATIENT / FAMILY RESPONSE: Verbalizes understanding of: PRE-PROCEDURE INSTRUCTIONS-Correct action to take to follow pre-procedure instructions FOLLOW-UP PLAN: Patient instructed to call with any further issues SUPPLEMENTAL MATERIAL: None REFERRAL (RECOMMENDATION): None Electronically Signed By: Marcus Mitchell RN In Department: [facility] SURGERY XR FLUOROSCOPY Observed: 09/07/2017 Status: F Source: [place] 9:57 AM [facility] REPOSITORY * * *Final Report* * * DATE OF EXAM: Sep 07 2017 9:57AM MDR [id number] - XR FLUOROSCOPY / PROCEDURE REASON: PAIN - LEFT-SIDED SCIATICA - LUMBAR FACET * * * * Physician Interpretation * * * * INDICATION: PAIN - LEFT-SIDED SCIATICA - LUMBAR FACET TECHNIQUE: Fluoroscopy with 3 views of the lower lumbar spine FLUOROSCOPY TIME: 0:13 FINDINGS/ IMPRESSION: [place] are seen adjacent to the lowest 3 facet joints on the left. Please refer to the performing LIP's report. [facility] Transcribe Date/Time: Sep 07 2017 11:46A Dictated by : RAMOS PEÑA MD This examination was interpreted and the report reviewed and electronically signed by: RAMOS PEÑA MD on Sep 07 2017 11:46AM EST [id number] OPERATIVE NO Observed: 09/07/2017 Status: COMPLETED Source: [place] 9:55 AM [facility] REPOSITORY HNO ID: [id number] Author: Palmer Shah Service: Pain Management Author Type: Physician Type: Operative Report Filed: 09/07/2017 9:57 AM Note Text: PATIENT NAME: Radha Reynolds SERVICE DATE: 09/07/2017 PROCEDURE NOTE PREOPERATIVE DIAGNOSIS(ES) Lumbar Spondylosis Lumbar Degerative Disc Disease POSTOPERATIVE DIAGNOSIS(ES): Same OPERATION: Left Lumbar Facet Medial Branch Nerve (L4,5,S1) Blockunder fluoroscopy. ANESTHESIA: versed 4mg IV INDICATIONS: Radha Reynolds presents for lumbar facet (medial branch) injections. Since the last visit, the patient denies any new pain complaints and denies any focal neurological deficits. The plan is to proceed with diagnostic lumbar facet medial branch nerve block. The risks and benefits of the procedure were discussed. Specifically, the risks of bleeding, infection, inadvertent dural puncture, spinal heaches, vasovagal reaction, epidural hematoma, partial or permanent nerve injury were covered. The potential side effects of medications used in procedures including increase in lumbar pain, headaches, facial redness or warmth (flushing), anxiety or mood swings, sleeplessness, fever, high blood sugar, brief reduction in immunity were discussed. The patient expressed understanding of potential risks and wishes to proceed with the procedure. OPERATIVE PROCEDURE: The patient was brought to the operating room. The patient was placed in the prone position with routine monitors placed. The lower back was prepped in sterile fashion. Fluoroscopy was used to identify the location of the left L4, and L5 medial branch nerves at the junctions of the superior articular process and the transverse processes of L4, L5, and the sacral ala respectively. Skin anesthesia was achieved using 10 cc of Lidocaine 1% over the injection sites. A 22 gauge, 3 1/2 spinal needle was slowly inserted at each level using AP, lateral and oblique fluoroscopic imaging. Negative aspiration for blood or CSF was confirmed. A total of 3ml of a medication mixture of 5mg of Kenalog per 1ml of Marcaine 0.25% was injected. A total of 3 sites were injected in equal and divided doses. The needles were removed and bleeding was nil. A sterile dressing was applied. The patient tolerated the procedure well. The patient was taken to the recovery room in stable condition. EBL: nil Start time: 9:47 AM End time: 9:52 AM I was present the entire time and personally performed the procedure. SIGNATURE: Palmer Shah MD DATE: September 07, 2017 TIME: 9:55 AM HISTORY PHYSICAL Observed: 09/07/2017 Status: COMPLETED Source: [place] 9:19 AM [facility] OTHER CAMPUS REPOSITORY O ID: [id number] Author: Palmer Shah Service: Pain Management Author Type: Physician Type: HANDP Filed: 09/07/2017 9:19 AM Note Text: HISTORY AND PHYSICAL EXAMINATION PATIENT NAME: Radha Reynolds DATE of SERVICE: 09/07/2017 Radha Reynolds is here for the pain mangement procedure. The patient presents with persistent pain complaints. Radha Reynolds denies any interval changes or new pain complaints or focal neurologic deficits. PAST MEDICAL HISTORY Diagnosis Date - DVT complicating (HCC) 2 weeks Post CS - Meniere's disease, unspecified Meniere's disease - MIGRAINE NOS W/O MENTN INTRACTABLE 09/07/2005 - Other anxiety states PAST SURGICAL HISTORY Procedure Laterality Date - APPENDECTOMY - DELIVERY ONLY , low cervical x 3 - LIGATE FALLOPIAN TUBE Tubal ligation - PAST SURGICAL HISTORY OF labyrinthectomy, left Social History Marital status: Spouse name: Years of education: Number of children: 3 Occupational History Occupation Employer Comment Unemployed Social History Main Topics Smoking status: Former Smoker Packs/day: 0.50 Years: 10.00 Types: Cigarettes Smokeless status: Never Used Comment: smokes 1/2 pack per day Alcohol use: Yes Comment: Socially 3 times a year Drug use: No Sexual activity: Yes Partners with: Male control/protection: Tubal Ligation FAMILY HISTORY Problem Relation Age of Onset - Adopted: Yes - adopted [OTHER] Mother - adopted [OTHER] Father ALLERGIES Allergen Reactions - Ct Dye [Other] Other: See Comments low blood pressure with the injectable dye Current Facility-Administered Medications: NaCl 0.9% iv infusion 30 mL/hr INTRAVENOUS CONTINUOUS Physical Exam: Performed in conjunction with observation. The patient is alert and oriented x3. The patient is in no acute distress. Neck: Supple. The range of motion is intact. Lungs: clear CVR: RRR. Extremities: no reported edema or erythema. Examination indicates no changes Impression: Lumbar facet arthropathy Plan: The informed consent has been obtained. The plan is to proceed with the procedure as planned. SIGNATURE: Palmer Shah MD DATE: September 07, 2017 TIME: 9:19 AM PT ED Observed: 09/07/2017 Status: COMPLETED Source: [place] 8:45 AM [facility] OTHER [facility]AMP[facility] REPOSITORY HNO ID: [id number] Author: Alexa Davies) JOAQUIN Atwood Service: (none) Author Type: Registered Nurse Type: Patient Education Filed: 09/07/2017 8:56 AM Note Text: PRE OP LEARNING ASSESSMENT PROCEDURE/SURGERY: SURGERY: READINESS TO LEARN COGNITIVE ABILITY: Alert and oriented MOTIVATION TO LEARN: Interested FAMILY SUPPORT: Unable to assess - Family not present PATIENT LEARNS BEST BY: Individual Instruction Verbal Instruction FACTORS AFFECTING LEARNING: None PHYSICAL LIMITATIONS AFFECTING LEARNING: None Electronically Signed By: Alexa Atwood RN In Department: [facility] SURGERY PROGRESS Observed: 08/16/2017 Status: COMPLETED Source: [place] 1:36 PM [facility] REPOSITORY HNO ID: [id number] Author: Palmer Shah Service: (none) Author Type: Physician Type: Progress Notes Filed: 08/16/2017 2:51 PM Note Text: [place] OFFICE NOTE DATE: August 16, 2017 Chief Complaint: chronic lower back SUBJECTIVE: [facility]. [facility] for a follow up appointment regarding chronic lower back pain. She states that since the last visit symptoms have been worsening. The pain is located in the low back lumbar region and radiates down the posterior leg. The pain is described as aching, moderate, numbness, pressure, radiating, severe, sharp and tight band and is rated as 8 on a scale of 0-10. The patient Reports numbness, tingling, morning stiffness and leg pain. Symptoms interfere with physical activity, work, sexual relations, walking, sleeping, sitting, bathing, driving, cooking, household cleaning, reaching for shelves and lifting. The pain is exacerbated by sitting, standing, forward flexion, getting up from sitting, lying down and walking. The pain is mitigated by heat, physical therapy, massage therapy, and home exercises . The patient is overall improved with the injections by 0%. She is currently receiving medications through the [facility]. She is not having difficulty with her [facility] medications. The medications are partially effective. The patient states the last dose of . OTC NSAIDs was taken at August 16, 2017. REVIEW OF SYSTEMS: Constitutional: (-) Fever (+) Night Sweats (-) Weight Gain (-) Weight Loss (-) Fatigue Cardiovascular: (-) Chest Pain (-) Palpitations (-) Lightheadedness (-) Swelling of Ankles (-) Hx Heart Surgery Respiratory: (-) Shortness of Breath (-) Cough (-) Wheezing (-) Snoring Gastrointestinal: (-) Incontinence (-) Abdominal Pain (-) Diarrhea (-) Constipation (-) Nausea/Vomiting (-) Heart Burn Endocrine: (-) Thyroid Disorder (-) Diabetes Hematologic: (-) Prolonged Bleeding (-) Easy Bruising Genitourinary: (-) Incontinence (-) Frequency (-) Urinary Urgency Skin: (-) Rashes (-) Itching (-) Other Lesions Neurologic: (+) Headache (-) Double Vision (-) Confusion (-) Paralysis (+) Vertigo Psychiatric: (-) Depression (+) Anxiety (-) Delusions (-) Hallucinations (-) Personal History of Alcohol or Substance Abuse (-) Family History of Alcohol or Substance Abuse PAST MEDICAL HISTORY Diagnosis Date - DVT complicating (HCC) 2 weeks Post CS - Meniere's disease, unspecified Meniere's disease - MIGRAINE NOS W/O MENTN INTRACTABLE 09/07/2005 - Other anxiety states PAST SURGICAL HISTORY Procedure Laterality Date - APPENDECTOMY - DELIVERY ONLY , low cervical x 3 - LIGATE FALLOPIAN TUBE Tubal ligation - PAST SURGICAL HISTORY OF labyrinthectomy, left ALLERGIES Allergen Reactions - Ct Dye [Other] Other: See Comments low blood pressure with the injectable dye Current Outpatient Prescriptions: sertraline (ZOLOFT) 100 mg tablet TAKE 1 TABLET BY MOUTH ONCE DAILY. promethazine (PHENERGAN) 25 mg tablet TAKE 1 TABLET BY MOUTH EVERY 6 HOURS NEEDED ALPRAZolam (XANAX) 0.25 mg tablet Take 1 tablet by mouth once daily as needed. albuterol HFA (PROVENTIL HFA, VENTOLIN HFA) 90 mcg/actuation inhaler Inhale 2 Puffs as instructed every 4 hours as needed. ibuprofen (MOTRIN) 800 mg tablet Take 1 tablet by mouth every 8 hours as needed for Pain or Fever (FOR PAIN. TAKE WITH FOOD). No current facility-administered medications for this visit. I have reviewed the nurses notes and I am aware of the family/social history. Since the last evaluation the medical history has not changed. PHYSICAL EXAMINATION: Vitals: Pulse 77 Wt 187 lb (84.8kg) SpO2 95% Performed in conjunction with observation. The patient is alert and oriented x3. The patient is in no acute distress. Station and Gait: Normal stance, normal gait. Lungs: normal respiratory rate and rhythm. Cardiovascular: regular rate. Neck: Supple. The range of motion is intact. Back: Range of motion of the trunk was generally intact. Spine: Tenderness left L5-S1 lumbar sacral junction, tenderness to left PSIS, positive facet loading Extremities: no reported edema or erythema. Motor: Exhibits full strength in all four extremities. ASSESSMENT: Pt reports tightness in the L5-S1 region on the left and deep ache in the left SI. Pt had a left SI injection on 06-22-17 and reports minimal relief. After x2 days the pain was achey. She takes ibuprofen 800 mg to reduce inflammation and swelling She just started back to the gym m- for 1 1/2 hr each day. She walks a fast mile on the treadmill using an incline, light weights and 40 flights of steps on the stair master. She also utilizes the hydromassage table. She does stretch after she works out. Reviewed Lumbar CT and will try left L4,5,S1 FACET injections x2. Consider RFA Encounter Diagnosis ICD-10-CM 1. SI (sacroiliac) joint dysfunction M53.3 2. Left-sided low back pain with left-sided sciatica, unspecified chronicity M54.42 OARRS website checked and validated. All prescriptions have been APPROPRIATELY filled. No suspicious activity was identified.- 08/16/2017 by Devaughn Kurtz Ma Narcotic Agreement reviewed and signed?: N/A on August 16, 2017 The pain panel was N/A PLAN: Prior available imaging studies were reviewed. Findings were discussed. Injection history was reviewed. Medication use and compliance were reviewed. 1. I do not recommend opioid pain medications for this condition.The patient understands that I will not provide prescriptions for opioids 2. continue ibuprofen 800 mg prn 3. Interventional procedure options discussed. Left L4,5,S1 FACET X2 (schedule 4 weeks apart). Consider RFA 4. Encouraged regular home exercise program. Pt goes to the gym x5 days a week-treadmill, light weights and stair climber. Continue to use the hydomassager 5) F/U in 2 months The treatment plan was discussed with the patient during the office visit and they verbalized an understanding of it. The patient was seen and discussed with Omid Alcantar CNP. The patient's progress has been reviewed and discussed with the patient. All questions were addressed and answered. Agree with the plan as outlined above. Palmer Shah MD cc: Dr. Caterina Jones PA-C cc: Caterina Jones PA-C [id number] [facility] [place] [place] [address] Results of consultation to be transmitted via electronic medical record for those providers who practice within [facility] or with access to [employer] via MD Connect, or via letter. ANAMARIA Observed: 08/16/2017 Status: COMPLETED Source: [place] 1:20 PM [facility] REPOSITORY Office Visit (PNMDNA) RADHA REYNOLDS ([id number]) 1975 F Date Time Provider Department 08/16/17 1:20 PM PALMER SHAH PNMDNA During your visit today, we recorded the following information about you: Pulse Weight 77/minute 84.8 kg Palmer Shah MD 08/16/2017 2:51 PM Signed [facility] NOTE DATE: August 16, 2017 Chief Complaint: chronic lower back SUBJECTIVE: [facility]. [facility] for a follow up appointment regarding chronic lower back pain. She states that since the last visit symptoms have been worsening. The pain is located in the low back lumbar region and radiates down the posterior leg. The pain is described as aching, moderate, numbness, pressure, radiating, severe, sharp and tight band and is rated as 8 on a scale of 0-10. The patient Reports numbness, tingling, morning stiffness and leg pain. Symptoms interfere with physical activity, work, sexual relations, walking, sleeping, sitting, bathing, driving, cooking, household cleaning, reaching for shelves and lifting. The pain is exacerbated by sitting, standing, forward flexion, getting up from sitting, lying down and walking. The pain is mitigated by heat, physical therapy, massage therapy, and home exercises . The patient is overall improved with the injections by 0%. She is currently receiving medications through the [facility]. She is not having difficulty with her [facility] medications. The medications are partially effective. The patient states the last dose of . OTC NSAIDs was taken at August 16, 2017. REVIEW OF SYSTEMS: Constitutional: (-) Fever (+) Night Sweats (-) Weight Gain (-) Weight Loss (-) Fatigue Cardiovascular: (-) Chest Pain (-) Palpitations (-) Lightheadedness (-) Swelling of Ankles (-) Hx Heart Surgery Respiratory: (-) Shortness of Breath (-) Cough (-) Wheezing (-) Snoring Gastrointestinal: (-) Incontinence (-) Abdominal Pain (-) Diarrhea (-) Constipation (-) Nausea/Vomiting (-) Heart Burn Endocrine: (-) Thyroid Disorder (-) Diabetes Hematologic: (-) Prolonged Bleeding (-) Easy Bruising Genitourinary: (-) Incontinence (-) Frequency (-) Urinary Urgency Skin: (-) Rashes (-) Itching (-) Other Lesions Neurologic: (+) Headache (-) Double Vision (-) Confusion (-) Paralysis (+) Vertigo Psychiatric: (-) Depression (+) Anxiety (-) Delusions (-) Hallucinations (-) Personal History of Alcohol or Substance Abuse (-) Family History of Alcohol or Substance Abuse PAST MEDICAL HISTORY Diagnosis Date - DVT complicating (HCC) 2 weeks Post CS - Meniere's disease, unspecified Meniere's disease - MIGRAINE NOS W/O MENTN INTRACTABLE 09/07/2005 - Other anxiety states PAST SURGICAL HISTORY Procedure Laterality Date - APPENDECTOMY - DELIVERY ONLY , low cervical x 3 - LIGATE FALLOPIAN TUBE Tubal ligation - PAST SURGICAL HISTORY OF labyrinthectomy, left ALLERGIES Allergen Reactions - Ct Dye [Other] Other: See Comments low blood pressure with the injectable dye Current Outpatient Prescriptions: sertraline (ZOLOFT) 100 mg tablet TAKE 1 TABLET BY MOUTH ONCE DAILY. promethazine (PHENERGAN) 25 mg tablet TAKE 1 TABLET BY MOUTH EVERY 6 HOURS NEEDED ALPRAZolam (XANAX) 0.25 mg tablet Take 1 tablet by mouth once daily as needed. albuterol HFA (PROVENTIL HFA, VENTOLIN HFA) 90 mcg/actuation inhaler Inhale 2 Puffs as instructed every 4 hours as needed. ibuprofen (MOTRIN) 800 mg tablet Take 1 tablet by mouth every 8 hours as needed for Pain or Fever (FOR PAIN. TAKE WITH FOOD). No current facility-administered medications for this visit. I have reviewed the nurses notes and I am aware of the family/social history. Since the last evaluation the medical history has not changed. PHYSICAL EXAMINATION: Vitals: Pulse 77 Wt 187 lb (84.8kg) SpO2 95% Performed in conjunction with observation. The patient is alert and oriented x3. The patient is in no acute distress. Station and Gait: Normal stance, normal gait. Lungs: normal respiratory rate and rhythm. Cardiovascular: regular rate. Neck: Supple. The range of motion is intact. Back: Range of motion of the trunk was generally intact. Spine: Tenderness left L5-S1 lumbar sacral junction, tenderness to left PSIS, positive facet loading Extremities: no reported edema or erythema. Motor: Exhibits full strength in all four extremities. ASSESSMENT: Pt reports tightness in the L5-S1 region on the left and deep ache in the left SI. Pt had a left SI injection on 12-5-17 and reports minimal relief. After x2 days the pain was achey. She takes ibuprofen 800 mg to reduce inflammation and swelling She just started back to the gym m-f for 1 1/2 hr each day. She walks a fast mile on the treadmill using an incline, light weights and 40 flights of steps on the stair master. She also utilizes the hydromassage table. She does stretch after she works out. Reviewed Lumbar CT and will try left L4,5,S1 FACET injections x2. Consider RFA Encounter Diagnosis ICD-10-CM 1. SI (sacroiliac) joint dysfunction M53.3 2. Left-sided low back pain with left-sided sciatica, unspecified chronicity M54.42 OARRS website checked and validated. All prescriptions have been APPROPRIATELY filled. No suspicious activity was identified.- 08/16/2017 by Devaughn Kurtz Ma Narcotic Agreement reviewed and signed?: N/A on August 16, 2017 The pain panel was N/A PLAN: Prior available imaging studies were reviewed. Findings were discussed. Injection history was reviewed. Medication use and compliance were reviewed. 1. I do not recommend opioid pain medications for this condition.The patient understands that I will not provide prescriptions for opioids 2. continue ibuprofen 800 mg prn 3. Interventional procedure options discussed. Left L4,5,S1 FACET X2 (schedule 4 weeks apart). Consider RFA 4. Encouraged regular home exercise program. Pt goes to the gym x5 days a week-treadmill, light weights and stair climber. Continue to use the hydomassager 5) F/U in 2 months The treatment plan was discussed with the patient during the office visit and they verbalized an understanding of it. The patient was seen and discussed with Omid Alcantar CNP. The patient's progress has been reviewed and discussed with the patient. All questions were addressed and answered. Agree with the plan as outlined above. Palmer Shah MD cc: Dr. Caterina Jones PA-C cc: Caterina Jones PA-C [phone] [facility] [address] Results of consultation to be transmitted via electronic medical record for those providers who practice within [facility] or with access to [employer] via MD Connect, or via letter. Devaughn Kurtz Ma 08/16/2017 3:36 PM Signed Addended by: DEVAUGHN KURTZ MA on: 08/16/2017 03:36 PM Modules accepted: Orders Referring Provider: Caterina JONES) [[id number]] Allergies As of Date: 08/16/[address] dye [Other] 02/02/2005 14 - Other: See Comments Comments: low blood pressure with the injectable dye Date Reviewed: 08/16/2017 Reviewed by: Devaughn Kurtz Ma - Fully Assessed Reason for Visit: Established Patient [175] Cmt: Cortisone inj follow up Primary Visit Diagnosis:SI (sacroiliac) joint dysfunction [M53.3] Other Visit Diagnoses:Left-sided low back pain with left- sided sciatica, unspecified chronicity [M54.42] Degenerative disc disease, lumbar [M51.36] Order(s):NJX DX/THER AGT PVRT FACET JT LMBR/SAC 1 LEVEL [[id number]] Order #: [id number] SURGICAL REQUEST - ELECTIVE [[id number]] Order #: [id number]: 1 SURGICAL REQUEST - ELECTIVE [[id number]] Order #: [id number]: 1 Prescriptions as of 08/16/2017 Sig: SERTRALINE 100 MG TABLET TAKE 1 TABLET BY MOUTH ONCE D* PROMETHAZINE 25 MG TABLET TAKE 1 TABLET BY MOUTH EVERY * ALPRAZOLAM 0.25 MG TABLET Take 1 tablet by mouth once d* ALBUTEROL SULFATE HFA 90 MCG/* Inhale 2 Puffs as instructed * IBUPROFEN 800 MG TABLET Take 1 tablet by mouth every * Problem List As Of Date 08/16/2017 Noted Resolved ADJUSTMENT DISORDER WITH DEPRESSED MOOD [F43.21]INVALID FOR* MIGRAINE NOS W/O MENTN INTRACTABLE [G43.909] INVALID FOR* JOINT PAIN-UNSPEC [M25.50] INVALID FOR* Peripheral vertigo, unspecified [H81.399] INVALID FOR*12/02/2011 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 Degenerative disc disease, lumbar [M51.36] INVALID FOR* More... Encounter Status:Closed by PALMER SHAH MD on 08/16/17 HOSP Observed: 08/16/2017 Status: COMPLETED Source: [place] 12:00 AM [facility] OTHER CAMPUS REPOSITORY Patient:Radha Reynolds MRN: <[id number]> Height:5' 8(1.727 m) Weight:187 lb (84.823 kg) Outpatient Medications as of 09/07/17: ibuprofen (MOTRIN) 800 mg tablet sertraline (ZOLOFT) 100 mg tablet promethazine (PHENERGAN) 25 mg tablet ALPRAZolam (XANAX) 0.25 mg tablet albuterol HFA (PROVENTIL HFA, VENTOLIN HFA) 90 mcg/actuation inhaler Admission/Clinic Administered Medications as of 09/07/17: NaCl 0.9% iv infusion Problem List: Adjustment disorder with depressed mood [F43.21] Migraine, unspecified, without mention of intractable migraine without mention of status migrainosus [G43.909] Pain in joint, site unspecified [M25.50] Active Meniere's disease, 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] Symptomatic menopausal or female climacteric states [N95.1] Encounter for gynecological examination with abnormal finding [Z01.411] Left-sided low back pain with left-sided sciatica [M54.42] SI (sacroiliac) joint dysfunction [M53.3] Degenerative disc disease, lumbar [M51.36] Allergies: ct dye [Other] Date Verified: 09/07/17 Lab Values No results within the last 30 days for the following basenames: K,HCT Progress Notes ([facility]): Pao Ramesh LPN 09/06/2017 9:05 AM Signed Patient has been identified by name and date of : Yes Pending Prescriptions Disp Refills IBUPROFEN 800 MG TABLET 30 tablet 5 Sig: TAKE 1 TABLET BY MOUTH EVERY 8 HOURS NEEDED FOR PAIN OR FEVER (FOR PAIN. TAKE WITH FOOD). UMM: Yes RX INSTRUCTIONS: Pharmacy initiated this request. No need to notify patient. Pao Ramesh LPN Progress Notes ([facility]): Alexandra Aguilar LPN 08/24/2017 4:55 PM Signed Last prescription from 08/05/17 was never received per the pharmacy. Last office visit: 01/20/18 Next office visit: nothing scheduled Patient has been identified by name and date of : Yes Pending Prescriptions Disp Refills SERTRALINE 100 MG TABLET 30 tablet 5 Sig: TAKE 1 TABLET BY MOUTH ONCE DAILY. UMM: Yes RX INSTRUCTIONS: Pharmacy initiated this request. No need to notify patient. Alexandra Aguilar LPN HOSP Observed: 08/16/2017 Status: COMPLETED Source: [place] 12:00 AM CL[facility]IC OTHER CAMPUS REPOSITORY Patient:Radha Reynolds MRN: <[id number]> Height:5' 8(1.727 m) Weight:No patient weight recorded within the last 30 days. 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] Symptomatic menopausal or female climacteric states [N95.1] Encounter for gynecological examination with abnormal finding [Z01.411] Left-sided low back pain with left-sided sciatica [M54.42] SI (sacroiliac) joint dysfunction [M53.3] Degenerative disc disease, lumbar [M51.36] Allergies: ct dye [Other] Date Verified: 10/05/17 Lab Values No results within the last 30 days for the following basenames: K,HCT No progress notes entered within the past 30 days OBSOLETE Observed: 08/10/2017 Status: COMPLETED Source: [place] 12:00 AM [facility] REPOSITORY Refill (FAMPWS) RADHA REYNOLDS ([id number]) 1975 F Date Time Provider Department 08/10/17 Caterina JONES (OLGA) FAMPWS During your visit today, we recorded the following information about you: Jossy Barber Ma 08/10/2017 3:09 PM Signed Zoloft just filled 30/5 on 07/26/17. Allergies As of Date: 08/10/[address] dye [Other] 02/02/2005 14 - Other: See Comments Comments: low blood pressure with the injectable dye Date Reviewed: 07/20/2017 Reviewed by: Jennifer Deleon LPN - Fully Assessed Reason for Visit: Refill Request [94] Prescriptions as of 08/10/2017 Sig: SERTRALINE 100 MG TABLET TAKE 1 TABLET BY MOUTH ONCE D* PROMETHAZINE 25 MG TABLET TAKE 1 TABLET BY MOUTH EVERY * ALPRAZOLAM 0.25 MG TABLET Take 1 tablet by mouth once d* ALBUTEROL SULFATE HFA 90 MCG/* Inhale 2 Puffs as instructed * IBUPROFEN 800 MG TABLET Take 1 tablet by mouth every * Problem List As Of Date 08/10/2017 Noted Resolved ADJUSTMENT DISORDER WITH DEPRESSED MOOD [F43.21]INVALID FOR* MIGRAINE NOS W/O MENTN INTRACTABLE [G43.909] INVALID FOR* JOINT PAIN-UNSPEC [M25.50] INVALID FOR* Peripheral vertigo, unspecified [H81.399] INVALID FOR*12/02/2011 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 Encounter Status:Closed by JOSSY BARBER MA on 08/10/17 OBSOLETE Observed: 07/26/2017 Status: COMPLETED Source: [place] 12:00 AM [facility] REPOSITORY Refill (FAMPWS) RADHA REYNOLDS ([id number]) 1975 F Date Time Provider Department [facility] your visit today, we recorded the following information about you: Aleida Ferguson Ma 07/26/2017 10:01 AM Signed Patient has been identified by name and date of : Yes Pending Prescriptions Disp Refills SERTRALINE 100 MG TABLET 30 tablet 5 Sig: TAKE 1 TABLET BY MOUTH ONCE DAILY. UMM: Yes RX INSTRUCTIONS: Patient aware RX will be sent to pharmacy. No need to notify patient. Aleida Ferguson Ma Last OV: 01/2017 Last refill: 09/2016 No visit scheduled. Aleida Ferguson Ma Allergies As of Date: 07/26/[address] dye [Other] 02/02/2005 14 - Other: See Comments Comments: low blood pressure with the injectable dye Date Reviewed: 07/20/2017 Reviewed by: Jennifer Deleon LPN - Fully Assessed Reason for Visit: Refill Request [94] Order(s):sertraline (ZOLOFT) 100 mg tabletTAKE 1 TABLET BY MOUTH ONCE DAILY.Disp: 30 tabletRfl: 5 Prescriptions as of 07/26/2017 Sig: SERTRALINE 100 MG TABLET TAKE 1 TABLET BY MOUTH ONCE D* PROMETHAZINE 25 MG TABLET TAKE 1 TABLET BY MOUTH EVERY * CIPROFLOXACIN 500 MG TABLET Take 1 tablet by mouth twice * ALPRAZOLAM 0.25 MG TABLET Take 1 tablet by mouth once d* ALBUTEROL SULFATE HFA 90 MCG/* Inhale 2 Puffs as instructed * IBUPROFEN 800 MG TABLET Take 1 tablet by mouth every * Problem List As Of Date 07/26/2017 Noted Resolved ADJUSTMENT DISORDER WITH DEPRESSED MOOD [F43.21]INVALID FOR* MIGRAINE NOS W/O MENTN INTRACTABLE [G43.909] INVALID FOR* JOINT PAIN-UNSPEC [M25.50] INVALID FOR* Peripheral vertigo, unspecified [H81.399] INVALID FOR*12/02/2011 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 Prescriptions ordered this encounter Disp Refills Start End SERTRALINE 100 MG TABLET 30 t* 5 07/26/2017 Sig: TAKE 1 TABLET BY MOUTH ONCE DAILY. Medications Discontinued During This Encounter sertraline (ZOLOFT) 100 mg tablet 30 t* 5 10/16/2016 07/26/2017 Route: ORAL Sig: Take 1 tablet by mouth once daily. Disc: Reason for discontinue is not on file. Encounter Status:Closed by BARB ATKINS MD on 07/26/17 Observed: 07/20/2017 Status: F Source: [place] URINE CULTURE 2:40 PM [facility] [place] REPOSITORY Sp. Request/Comment: - Specimen received in preservative Culture Result - No growth (<1,000 CFU/ml) Performed By: #### URCUL #### [facility] [address] [place], [place] [address] PROGRESS Observed: 07/20/2017 Status: COMPLETED Source: [place] 2:34 PM [facility] REPOSITORY HNO ID: [id number] Author: Zaynab Rebolledo (Pa) Service: (none) Author Type: Physician Electrical Prospecting Engineer Type: Progress Notes Filed: 07/20/2017 7:25 PM Note Text: This note was created using [employer]. Subjective HPI Pt presents with urinary frequency, pressure and hematuria starting yesterday. She does have some mild low right back pain. No nvd or diarrhea. She did have a uti about 6 months ago. Review of Systems Constitutional: Negative. HENT: Negative. Eyes: Negative. Gastrointestinal: Negative. Genitourinary: Positive for frequency and hematuria. Negative for dysuria. Musculoskeletal: Positive for back pain. Skin: Negative. Neurological: Negative. Hematological: Negative. Psychiatric/Behavioral: Negative. PAST MEDICAL HISTORY Diagnosis Date - DVT complicating (HCC) 2 weeks Post CS - Meniere's disease, unspecified Meniere's disease - MIGRAINE NOS W/O MENTN INTRACTABLE 09/07/2005 - Other anxiety states Current Outpatient Prescriptions: promethazine (PHENERGAN) 25 mg tablet TAKE 1 TABLET BY MOUTH EVERY 6 HOURS NEEDED Disp: 30 tablet Rfl: 1 ALPRAZolam (XANAX) 0.25 mg tablet Take 1 tablet by mouth once daily as needed. Disp: 30 tablet Rfl: 0 albuterol HFA (PROVENTIL HFA, VENTOLIN HFA) 90 mcg/actuation inhaler Inhale 2 Puffs as instructed every 4 hours as needed. Disp: 1 Inhaler Rfl: 3 sertraline (ZOLOFT) 100 mg tablet Take 1 tablet by mouth once daily. Disp: 30 tablet Rfl: 5 ibuprofen (MOTRIN) 800 mg tablet Take 1 tablet by mouth every 8 hours as needed for Pain or Fever (FOR PAIN. TAKE WITH FOOD). Disp: 30 tablet Rfl: 5 ciprofloxacin HCl (CIPRO) 500 mg tablet Take 1 tablet by mouth twice daily for 10 days. Disp: 20 tablet Rfl: 0 phenazopyridine (PYRIDIUM, GERIDIUM) 200 mg tablet Take 1 tablet by mouth three times daily as needed for up to 2 days. Disp: 6 tablet Rfl: 0 No current facility-administered medications for this visit. PAST SURGICAL HISTORY Procedure Laterality Date - APPENDECTOMY - DELIVERY ONLY , low cervical x 3 - LIGATE FALLOPIAN TUBE Tubal ligation - PAST SURGICAL HISTORY OF labyrinthectomy, left FAMILY HISTORY Problem Relation Age of Onset - Adopted: Yes - adopted [OTHER] Mother - adopted [OTHER] Father Social History Substance Use Topics - Smoking status: Former Smoker Packs/day: 0.50 Years: 10.00 Types: Cigarettes - Smokeless tobacco: Never Used Comment: smokes 1/2 pack per day - Alcohol use Yes Comment: Socially 3 times a year Objective BP 122/70 Pulse 72 Temp 36.7 ?C (98.1 ?F) (Tympanic) Resp 18 Wt 86.3 kg (190 lb 3.2 oz) BMI 28.5 kg/m2 Physical Exam Constitutional: She is oriented to person, place, and time. She appears well-developed and well-nourished. HENT: Head: Normocephalic and atraumatic. Neck: Normal range of motion. Cardiovascular: Regular rhythm and normal heart sounds. Pulmonary/Chest: Effort normal and breath sounds normal. Abdominal: Soft. Bowel sounds are normal. Musculoskeletal: No cva tenderness Lymphadenopathy: She has no cervical adenopathy. Neurological: She is alert and oriented to person, place, and time. Skin: Skin is warm and dry. No rash noted. Psychiatric: She has a normal mood and affect. Her behavior is normal. Nursing note and vitals reviewed. ASSESSMENT/PLAN: 1. Urgency of urination - ICD9: 788.63, ICD10: R39.15 (primary diagnosis) - pt has done well on cipro before. Will start. Urine dip not helpful due to patient being on azo. Will treat sx and send for culture. 2. Urinary frequency - ICD9: 788.41, ICD10: R35.0 3. Dysuria - ICD9: 788.1, ICD10: R30.0 Zaynab Rebolledo PA-C Assessment and Plan CNOV Observed: 07/20/2017 Status: COMPLETED Source: [place] 2:15 PM [facility] REPOSITORY Office Visit (WSTR) RADHA REYNOLDS ([id number]) 1975 F Date Time Provider Department 07/20/17 2:15 PM ZAYNAB REBOLLEDO) [facility] During your visit today, we recorded the following information about you: Temperature Pulse Respiration Blood pressure 98.1 degrees 72/minute 18/minute 122/70 Weight 86.3 kg Zaynab Rebolledo PA-C 07/20/2017 7:25 PM Signed This note was created using [employer]. Subjective HPI Pt presents with urinary frequency, pressure and hematuria starting yesterday. She does have some mild low right back pain. No nvd or diarrhea. She did have a uti about 6 months ago. Review of Systems Constitutional: Negative. HENT: Negative. Eyes: Negative. Gastrointestinal: Negative. Genitourinary: Positive for frequency and hematuria. Negative for dysuria. Musculoskeletal: Positive for back pain. Skin: Negative. Neurological: Negative. Hematological: Negative. Psychiatric/Behavioral: Negative. PAST MEDICAL HISTORY Diagnosis Date - DVT complicating (HCC) 2 weeks Post CS - Meniere's disease, unspecified Meniere's disease - MIGRAINE NOS W/O MENTN INTRACTABLE 09/07/2005 - Other anxiety states Current Outpatient Prescriptions: promethazine (PHENERGAN) 25 mg tablet TAKE 1 TABLET BY MOUTH EVERY 6 HOURS NEEDED Disp: 30 tablet Rfl: 1 ALPRAZolam (XANAX) 0.25 mg tablet Take 1 tablet by mouth once daily as needed. Disp: 30 tablet Rfl: 0 albuterol HFA (PROVENTIL HFA, VENTOLIN HFA) 90 mcg/actuation inhaler Inhale 2 Puffs as instructed every 4 hours as needed. Disp: 1 Inhaler Rfl: 3 sertraline (ZOLOFT) 100 mg tablet Take 1 tablet by mouth once daily. Disp: 30 tablet Rfl: 5 ibuprofen (MOTRIN) 800 mg tablet Take 1 tablet by mouth every 8 hours as needed for Pain or Fever (FOR PAIN. TAKE WITH FOOD). Disp: 30 tablet Rfl: 5 ciprofloxacin HCl (CIPRO) 500 mg tablet Take 1 tablet by mouth twice daily for 10 days. Disp: 20 tablet Rfl: 0 phenazopyridine (PYRIDIUM, GERIDIUM) 200 mg tablet Take 1 tablet by mouth three times daily as needed for up to 2 days. Disp: 6 tablet Rfl: 0 No current facility-administered medications for this visit. PAST SURGICAL HISTORY Procedure Laterality Date - APPENDECTOMY - DELIVERY ONLY , low cervical x 3 - LIGATE FALLOPIAN TUBE Tubal ligation - PAST SURGICAL HISTORY OF labyrinthectomy, left FAMILY HISTORY Problem Relation Age of Onset - Adopted: Yes - adopted [OTHER] Mother - adopted [OTHER] Father Social History Substance Use Topics - Smoking status: Former Smoker Packs/day: 0.50 Years: 10.00 Types: Cigarettes - Smokeless tobacco: Never Used Comment: smokes 1/2 pack per day - Alcohol use Yes Comment: Socially 3 times a year Objective BP 122/70 Pulse 72 Temp 36.7 ?C (98.1 ?F) (Tympanic) Resp 18 Wt 86.3 kg (190 lb 3.2 oz) BMI 28.5 kg/m2 Physical Exam Constitutional: She is oriented to person, place, and time. She appears well-developed and well-nourished. HENT: Head: Normocephalic and atraumatic. Neck: Normal range of motion. Cardiovascular: Regular rhythm and normal heart sounds. Pulmonary/Chest: Effort normal and breath sounds normal. Abdominal: Soft. Bowel sounds are normal. Musculoskeletal: No cva tenderness Lymphadenopathy: She has no cervical adenopathy. Neurological: She is alert and oriented to person, place, and time. Skin: Skin is warm and dry. No rash noted. Psychiatric: She has a normal mood and affect. Her behavior is normal. Nursing note and vitals reviewed. ASSESSMENT/PLAN: 1. Urgency of urination - ICD9: 788.63, ICD10: R39.15 (primary diagnosis) - pt has done well on cipro before. Will start. Urine dip not helpful due to patient being on azo. Will treat sx and send for culture. 2. Urinary frequency - ICD9: 788.41, ICD10: R35.0 3. Dysuria - ICD9: 788.1, ICD10: R30.0 Zaynab Rebolledo PA-C Assessment and Plan Referring Provider: SELF [[id number]] Allergies As of Date: 07/20/[address] dye [Other] 02/02/2005 14 - Other: See Comments Comments: low blood pressure with the injectable dye Date Reviewed: 07/20/2017 Reviewed by: Jennifer Deleon LPN - Fully Assessed Reason for Visit: frequency and urgency with urination, bladder pressure [Other] Cmt: x 1 day-she did take AZO Primary Visit Diagnosis:Urgency of urination [R39.15] Other Visit Diagnoses:Urinary frequency [R35.0] Dysuria [R30.0] Order(s):UA DIP B/O [[id number]] Order #: [id number] URINE CULTURE [SQURCUL] Order #: [id number] ciprofloxacin HCl (CIPRO) 500 mg tabletTake 1 tablet by mouth twice daily for 10 days.Disp: 20 tabletRfl: 0 phenazopyridine (PYRIDIUM, GERIDIUM) 200 mg tabletTake 1 tablet by mouth three times daily as needed for up to 2 days.Disp: 6 tabletRfl: 0 Prescriptions as of 07/20/2017 Sig: PROMETHAZINE 25 MG TABLET TAKE 1 TABLET BY MOUTH EVERY * ALPRAZOLAM 0.25 MG TABLET Take 1 tablet by mouth once d* ALBUTEROL SULFATE HFA 90 MCG/* Inhale 2 Puffs as instructed * SERTRALINE 100 MG TABLET Take 1 tablet by mouth once d* IBUPROFEN 800 MG TABLET Take 1 tablet by mouth every * CIPROFLOXACIN 500 MG TABLET Take 1 tablet by mouth twice * PHENAZOPYRIDINE 200 MG TABLET Take 1 tablet by mouth three * Problem List As Of Date 07/20/2017 Noted Resolved ADJUSTMENT DISORDER WITH DEPRESSED MOOD [F43.21]INVALID FOR* MIGRAINE NOS W/O MENTN INTRACTABLE [G43.909] INVALID FOR* JOINT PAIN-UNSPEC [M25.50] INVALID FOR* Peripheral vertigo, unspecified [H81.399] INVALID FOR*12/02/2011 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 Prescriptions ordered this encounter Disp Refills Start End CIPROFLOXACIN 500 MG TABLET 20 t* 0 07/20/2017 07/30/2017 Route: ORAL Sig: Take 1 tablet by mouth twice daily for 10 days. PHENAZOPYRIDINE 200 MG TABLET 6 ta* 0 07/20/2017 07/22/2017 Route: ORAL Sig: Take 1 tablet by mouth three times daily as needed for up to 2 days. Encounter Status:Closed by ZAYNAB REBOLLEDO PA-C on 07/20/17 OBSOLETE Observed: 07/20/2017 Status: COMPLETED Source: [place] 12:00 AM [facility] REPOSITORY Refill (FAMPWS) RADHA REYNOLDS ([id number]) 1975 F Date Time Provider Department 07/20/17 Caterina JONES (OLGA) FAMPWS During your visit today, we recorded the following information about you: Jsosy Goodwin Cma 07/20/2017 2:11 PM Signed Patient has been identified by name and date of : Yes RX INSTRUCTIONS: Patient aware RX will be sent to pharmacy. No need to notify patient. 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 Allergies As of Date: 07/20/[address] dye [Other] 02/02/2005 14 - Other: See Comments Comments: low blood pressure with the injectable dye Date Reviewed: 07/20/2017 Reviewed by: Jennifer Deleon LPN - Fully Assessed Reason for Visit: Refill Request [94] Order(s):promethazine (PHENERGAN) 25 mg tabletTAKE 1 TABLET BY MOUTH EVERY 6 HOURS NEEDEDDisp: 30 tabletRfl: 1 Prescriptions as of 07/20/2017 Sig: PROMETHAZINE 25 MG TABLET TAKE 1 TABLET BY MOUTH EVERY * ALPRAZOLAM 0.25 MG TABLET Take 1 tablet by mouth once d* ALBUTEROL SULFATE HFA 90 MCG/* Inhale 2 Puffs as instructed * SERTRALINE 100 MG TABLET Take 1 tablet by mouth once d* IBUPROFEN 800 MG TABLET Take 1 tablet by mouth every * Problem List As Of Date 07/20/2017 Noted Resolved ADJUSTMENT DISORDER WITH DEPRESSED MOOD [F43.21]INVALID FOR* MIGRAINE NOS W/O MENTN INTRACTABLE [G43.909] INVALID FOR* JOINT PAIN-UNSPEC [M25.50] INVALID FOR* Peripheral vertigo, unspecified [H81.399] INVALID FOR*12/02/2011 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 Prescriptions ordered this encounter Disp Refills Start End PROMETHAZINE 25 MG TABLET 30 t* 1 07/21/2017 Sig: TAKE 1 TABLET BY MOUTH EVERY 6 HOURS NEEDED Medications Discontinued During This Encounter promethazine (PHENERGAN) 25 mg tablet 30 t* 1 07/01/2017 07/21/2017 Sig: TAKE 1 TABLET BY MOUTH EVERY 6 HOURS NEEDED Disc: Reason for discontinue is not on file. Encounter Status:Closed by Caterina JONES PA-C on 07/21/17 ALLERGIES ALLERGIES DATE TYPE / CODE NAME / CODE REACTION SEVERITY SOURCE 10/17/2017 Drug Iodinated Shortness of Unknown [facility] Allergy/[id number](S Contrast- Oral breath [facility] NOM[facility]) and [facility] Dye/[id number] Repository (RXNORM) 02/02/2005 Miscellaneous OTHER OTHER: SEE C Johnson Allergy/[id number](S Clinic Other NOMED CT) [place] Repository ENCOUNTERS ENCOUNTERS ADMIT/DISCHARGE ACCOUNT ADMITTING ENCOUNTER LOCATION SOURCE NUMBER CLASS 06/20/2018/06/20/20 [id number] Emergency [address] ing:ED Repository 06/19/2018/06/21/20 [id number] Ambulatory [address] Repository 05/11/2018/05/13/20 [id number] Ambulatory [address] Repository 12/02/2017/12/03/19 [id number] [facility] Ambulatory [address] Other [place] Repository 11/25/2017/11/27/19 [id number] Ambulatory [address] Repository 10/28/2017/10/30/19 [id number] Ambulatory [address] Repository 10/17/2017/10/18/19 [id number] Emergency [address] ing:ED Repository 10/05/2017/10/06/19 [id number] [facility] Ambulatory [address] Other [place] Repository 09/07/2017/09/07/19 [id number] [facility] Ambulatory [address] [place] Repository 08/16/2017/08/16/19 [id number] Ambulatory [address] Repository 07/20/2017/07/21/[id number] Repository PAYERS PAYERS ENCOUNTER GUARANTOR PAYER SUBSCRIBER SOURCE 06/20/2018 RADHA L Primary RADHA L [place] [id number] [facility] [id number] [address]Jxr: 330 PLANPolicy Number: Repository [phone] ) [id number] Date:[id number] [address]WX: 06/20/2018 Secondary NOT GIVENUNK [place] Insurance:SELF PAY [facility] Number: Effective Repository Date:2018-06-20 10/17/2017 RADHA Primary RADHA Matthias [id number] [place] [facility] [id number] [address]Ptb: 330 PLANPolicy Number: Repository [phone] () [id number] Date:[id number], [place] [address]DH: 10/17/2017 Secondary NOT GIVENUNK Matthias Insurance:SELF PAY [facility] Number: Effective Repository Date:2017-10-17
== END 2018-06-20 10:23 | disposition home or self-care (01) ==
PROVIDERS: Emergency Provider Emergency Medicine; Family Provider Physician Assistant; PCP Physician Assistant
DX: R10.9 Unspecified abdominal pain (principal); N39.0 Urinary tract infection, site not specified; Z79.899 Other long term (current) drug therapy; Z87.442 Personal history of urinary calculi
CPT/HCPCS: 74176; 80048; 81001; 84703; 85025; 87086; 87088; 96361; 96374; 96375; 99284; J7030; A4216; J2405

== ENCOUNTER 2019-06-08 21:07 | Emergency (ER) | payer MEDICAID, SELFPAY ==
[2019-06-08 21:08] VITALS: BP 143/81; PULSE 100; RESP 16; TEMP 36.8; O2SAT 98; BMI 26.2
--- NOTE | 2019-06-08 21:21 | CT_ITS ---
STUDY: CT ABDOMEN AND PELVIS WITHOUT CONTRAST REASON FOR EXAM: Female, 44 years old. Right flank pain. RADIATION DOSAGE (If Supplied By Facility): CTDIvol = ( 9.7 ) mGy, DLP = ( 496 ) mGycm TECHNIQUE: Transaxial images were obtained from the dome of the diaphragm to the symphysis pubis without oral contrast, and without intravenous contrast. Sagittal and coronal images were reconstructed. Individualized dose optimization techniques were used for this CT. COMPARISON: None. FINDINGS: Central lobar emphysematous changes of the bilateral lower lobes are present. The visualized portions of the heart are within normal limits. Normal liver. The gallbladder is contracted. Normal spleen. Normal pancreas. Normal bilateral adrenal glands. Cortical nonobstructive nephroliths are present with no evidence of hydronephrosis. No evidence of ureteral stone is evident. Normal left kidney. Normal visualized stomach. Normal small intestine. Normal colon. There is non-visualization of the appendix. Normal abdominal aorta. Normal inferior vena cava. Normal retroperitoneum. Normal urinary bladder. Normal visualized uterus. Normal abdominal wall. Normal osseous structures. CT/Abdomen/Pelvis without Cont IMPRESSION: 1. Nonobstructive right renal nephrolithiasis with underlying calcific lesion not completely excluded. Recommend ultrasound imaging for further assessment of the renal parenchyma versus postcontrast CT imaging. Otherwise no evidence of hydronephrosis or ureteral stone. No evidence of focal abdominal inflammation. Electronically Signed: Vidal Horton DO at 22:36 EST , Service support ,
[2019-06-08 21:35] LABS: Mucous, Urine 0 SEEN /hpf (<or=2+)
[2019-06-08 21:36] LABS: Color, Urine Amber (Yellow); Glucose, Dipstick Normal (Normal); Ketone-Dipstick 5 mg/dl (Negative); Leukocyte Esterase-Dipstick 500 /ul (Negative); Nitrite-Dipstick Positive (Negative); Occult Blood-Urine 50 /ul (Negative); Protein-Dipstick 30 mg/dl (Negative); Specific Gravity, Urine 1.015 (1.002-1.030); Urine Bilirubin Dipstick 3 mg/dL (Negative); Urine Clarity Sl. Cloudy (Clear); Urine Urobilinogen 8 mg/dl (Normal); Urine pH 6.5 (5.0 - 8.0)
[2019-06-08 21:41] LABS: Internal QC Validated? YES +Cl - CLEAR BKGD; Pregnancy, Urine Negative Negative
[2019-06-08] MEDS: 0.9% Normal Saline 1,000 ML 1000 ML IV (21:41)
[2019-06-08] MEDS: Ondansetron 4 MG/2 ML Vial IV (21:41)
[2019-06-08] MEDS: Ketorolac 30 MG/ML Syringe IV (21:41)
[2019-06-08 21:43] LABS: White Blood Cells 10-25 SEEN /hpf (0-5)
[2019-06-08 21:44] LABS: Bacteria 1+ /hpf (None Seen); Red Blood Cells-Urine 0-5 SEEN /hpf (0-5); Squamous Epithelial Cells - UA 10-25 SEEN /hpf (5-10)
[2019-06-08 21:51] LABS: Absolute Lymphocyte Count 1.75 X10^3/uL (0.83-4.51); Absolute Neutrophil Count 7.5 X10^3/uL (2.0-7.7); Basophil# 0.05 X10^3/uL; Basophil% 0.5 % (0-1); Eosinophil# 0.05 X10^3/uL; Eosinophils% 0.5 % (0-5); Lymphocyte # 1.75 X10^3/ul (4.0); Lymphocyte % 16.4 % (19-41); Mean Corp Hgb Conc 32.5 g/dL (32-36); Mean Corpuscular Hgb 30.4 pg (27.0-32.0); Mean Corpuscular Volume 93.5 fL (81-99); Mean Platelet Vol. 9.6 fl (6.2-12.0); Monocyte# 1.27 X10^3/uL; Monocyte% 11.9 % (0-10); NRBC Flagged by Analyzer 0 % (0-5); Neutrophil # 7.52 X10^3/uL (2.7-7.7); Neutrophil % 70.4 % (47-70); Platelet Count 292 K/mm3 (150-450); RBC Distribution Width CV 12.1 % (11.6-14.6); RBC Distribution Width SD 41.6 fl (35.1-43.9); Red Blood Count 4.28 M/mm3 (4.2-5.4); White Blood Count 10.7 K/mm3 (4.4-11.0)
[2019-06-08 22:04] LABS: Anion Gap 6 (5-15); BUN 20 mg/dL (7-18); BUN/Creat Ratio 21.4 RATIO (10-20); Chloride 108 mmol/L (98-107); Creatinine, Serum 0.93 mg/dL (0.55-1.02); EST Glomerular Filtration Rate 69 mL/min (>60); Est Glom Filt Rate - Afr Amer 84 mL/min (>60); Estimated Creatinine Clearance 83.48 ml/min; Glucose 127 mg/dL (74-106); Sodium Level 141 mmol/L (136-145)
--- NOTE | 2019-06-08 22:54 | ED.DCSUM_ITS ---
- ER Visit Summary Date of Service: 06/08/19 Chief Complaint: UTI History of Present Illness: The patient is a 44 F with UTI symptoms for 10 days. She has suprapubic pain and burning. She is now starting to have nausea, vomiting, right flank pain, and fevers despite taking qdrc-jaa-zjaemal remedies. Physical Examination: Afebrile and vital signs unremarkable. Abdomen soft. Right CVA tender. Skin appears normal. Test Results: CBC and BMP unremarkable. Urinalysis shows signs of infection. Cultures pending. CT showed nonobstructing right renal lithiasis. Follow-up ultrasound was advised to rule out other lesions. Emergency Department Course and Treatment: Patient was treated with fluids, Zofran, and Toradol. Testing showed a UTI. There is concern for early pyelonephritis. She is not septic. CT showed no evidence of a ureteral stone or obstruction which would cause her symptoms. She will need outpatient follow-up ultrasound. Patient was treated with Rocephin, and will prescribe Cipro as well as Zofran. She may use [id number]-gmw-[id number] remedies for pain. She will follow-up with the [facility] for further outpatient management. If she has new or worsening issues, she will return as she may require reevaluation and/or inpatient care. Treatment Plan: As above Disposition: Discharge Impression: 1. UTI pyelonephritis 2. Right renal calcific lesion This note was generated with [employer] software. It may contain incorrect words, spelling, and punctuation that were not noted in review of the chart prior to signing ED Disposition - Plan for ED Patient: Referrals: Caterina Jones PA [Primary Care Provider] -
--- NOTE | 2019-06-08 22:58 | ED.DEP ---
ED Disposition - Plan for ED Patient: Instructions: PYELONEPHRITIS, Female (Adult) Prescriptions: Ciprofloxacin [Cipro] 500 mg PO BID #20 tab Prescription Printed Naproxen [Naprosyn] 500 mg PO BID PRN #20 tab Prescription Printed Ondansetron [Zofran Odt] 4 mg PO Q8H PRN PRN #10 tab PRN Reason: Nausea Prescription Printed Referrals: Caterina Jones PA [Primary Care Provider] -
[2019-06-08] MEDS: Ceftriaxone 1 GM/50 ML BAG IV (23:09)
[2019-06-09 00:02] VITALS: BP 116/68; PULSE 71; RESP 16; O2SAT 100
== END 2019-06-09 00:02 | disposition home or self-care (01) ==
LOC: ED 22:01
PROVIDERS: Emergency Provider Emergency Medicine; Family Provider Physician Assistant; PCP Physician Assistant
DX: N12 Tubulo-interstitial nephritis, not specified as acute or chronic (principal); N28.9 Disorder of kidney and ureter, unspecified; R11.2 Nausea with vomiting, unspecified; Z87.442 Personal history of urinary calculi; Z87.440 Personal history of urinary (tract) infections; Z87.891 Personal history of nicotine dependence; Z79.899 Other long term (current) drug therapy
CPT/HCPCS: 74176; 80048; 81001; 81025; 85025; 87077; 87086; 87088; 87186; 96361; 96365; 96375; 99285; J7030; A4216; J2405

== ENCOUNTER 2020-01-05 22:23 | Emergency (ER) | payer OTHER, SELFPAY ==
[2020-01-05 22:25] VITALS: BP 139/88; PULSE 71; RESP 14; TEMP 36.8; O2SAT 97; BMI 28.3
--- NOTE | 2020-01-05 22:36 | CT_ITS ---
STUDY: CT BRAIN WITHOUT CONTRAST REASON FOR EXAM: Female, 44 years old. HIT HEAD AT WORK ABOVE LEFT EYE, NO LOC RADIATION DOSAGE (If Supplied By Facility): CTDIvol = ( 44.99 ) mGy, DLP = ( 745.49 ) mGycm TECHNIQUE: Transaxial CT imaging of the brain was performed without administration of intravenous contrast material. Individualized dose optimization techniques were used for this CT. COMPARISON: CT head 03/02/2013 FINDINGS: There is a left frontal convexity and supraorbital soft tissue hematoma.. Normal calvarium. Normal size ventricles and extra-axial spaces for the patient''s age. Normal white matter tracts of the cerebral hemispheres. Normal basal ganglia and thalami. Normal brainstem. Normal cerebellum. There is no intracranial hemorrhage. There are no findings of an acute ischemic infarction. Normal visualized paranasal sinuses. CT/Brain/Head without Contrast IMPRESSION: Left frontal convexity and supraorbital soft tissue hematomas No acute intracerebral pathology Electronically Signed: Liban Zendejas, at 23:29 EDT Tel , Service support ,
--- NOTE | 2020-01-05 22:52 | ED.VISSUMM ---
- ER Visit Summary Date of Service: 01/05/20 Chief Complaint: Head injury History of Present Illness: The patient is a 44 F who was at work earlier this afternoon. 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 She ended up falling forward and hitting her head on a door. She did not lose consciousness. She is not on blood thinners. She has continued pain, and this evening she started to vomit. History of labyrinth ectomy on the left but otherwise no significant history. Physical Examination: Afebrile and vital signs unremarkable. She has an ecchymosis to her left forehead. Neck is unremarkable. HEENT exam otherwise unremarkable. No gross abnormal neurologic findings. Test Results: CT brain pending. Emergency Department Course and Treatment: Patient treated with Zofran while awaiting results. CT unremarkable for anything intracranial. She does have soft tissue hematomas. Patient given concussion precautions and return to work precautions. Treatment Plan: As above Disposition: Discharge Impression: Concussion without loss of consciousness This note was generated with [employer] dictation software. It may contain incorrect words, spelling, and punctuation that were not noted in review of the chart prior to signing ED Disposition - Plan for ED Patient: Instructions: ED Concussion Referrals: [facility] [place] [GROUP OF PHYSICIANS] -
[2020-01-05] MEDS: Ondansetron ODT 4 MG Tablet PO (22:55)
--- NOTE | 2020-01-05 23:28 | DCINST.ED_ITS ---
ED Disposition - Plan for ED Patient: Instructions: ED Concussion Referrals: [facility] [GROUP OF PHYSICIANS] -
--- NOTE | 2020-01-05 23:28 | ED.DEP ---
ED Disposition - Plan for ED Patient: Instructions: ED Concussion Referrals: [facility] [place] [GROUP OF PHYSICIANS] -
[2020-01-06 00:02] VITALS: BP 128/78; PULSE 71; RESP 16; O2SAT 98
== END 2020-01-06 00:50 | disposition home or self-care (01) ==
LOC: ED 23:05
PROVIDERS: Emergency Provider Emergency Medicine; PCP Physician Assistant
DX: S06.0X0A Concussion without loss of consciousness, initial encounter (principal); W22.8XXA Striking against or struck by other objects, initial encounter; Y93.89 Activity, other specified; Y92.9 Unspecified place or not applicable; Y99.0 Civilian activity done for income or pay; Z72.0 Tobacco use
CPT/HCPCS: 70450; 99283

== ENCOUNTER → 2020-04-01 07:09 | Outpatient (CLI) | payer OTHER, SELFPAY ==
[2020-03-18 09:43] VITALS: BMI 28.3
--- NOTE | 2020-04-01 07:11 | MRI_ITS ---
STUDY: MRI BRAIN WITH AND WITHOUT CONTRAST REASON FOR EXAM: Female, 45 years old. concussion 01/05/20; LEFT FRONTAL TENDERNESS, H/A WITH ACTIVITY TECHNIQUE: Standardized multiplanar fat and water weighted pulse sequences were obtained. IV Dotarem 17ml was administered for the contrast portion of the examination. COMPARISON: CT of 01/05/2020 FINDINGS: Normal size of the ventricles and extra-axial spaces for the patient''s age. Normal white matter tracts of the supratentorial brain. There is no evidence for recent intracranial ischemia or other cause of cytotoxic edema on diffusion weighted imaging (DWI). Normal T2* images of the brain without demonstrated susceptibility artifact. There is no demonstrated hemosiderin stain. Normal bilateral basal ganglia. Normal thalami. There is no extra-axial fluid accumulation. Normal flow voids within the major intracranial circulation suggesting patency by spin echo criteria. Normal venous enhancement. There is no enhancing intra-axial or extra-axial abnormality. Normal sella turcica, pituitary gland, infundibular stalk, optic chiasm and hypothalamus. Normal tectal plate and pineal gland. Normal midbrain, nieves and medulla. Normal cerebellum. Normal basal cisterns. Normal bilateral temporal bones. Normal bilateral internal auditory canals. No demonstrated orbital abnormality, within the constraints of a routine brain study. Mucous retention cyst in the floor of the left maxillary sinus consistent with chronic sinusitis Normal calvarium and skull base. Normal visualized soft tissue structures. Normal visualized upper cervical spine. MRI/Brain W/WO Contrast IMPRESSION: Normal unenhanced and enhanced MRI of the brain. Electronically Signed: Dequan Galeana MD at 8:51 EDT Tel , Service support ,
[2020-04-01 09:27] LABS: Hematocrit 40.3 % (37-47); Hemoglobin 12.8 g/dL (12.0-15.0); Mean Corp Hgb Conc 31.8 g/dL (32-36); Mean Corpuscular Volume 94.6 fL (81-99); Platelet Count 359 K/mm3 (150-450); RBC Distribution Width CV 12.8 % (11.6-14.6); RBC Distribution Width SD 44.1 fl (35.1-43.9); Red Blood Count 4.26 M/mm3 (4.2-5.4); White Blood Count 5.6 K/mm3 (4.4-11.0)
[2020-04-01 10:35] LABS: Vitamin B12 381 pg/mL (211-911)
[2020-04-01 10:47] LABS: AST(SGOT) 18 U/L (15-37); Alanine Aminotransfer ALT/SGPT 18 U/L (13-56); Albumin, Serum 3.5 g/dL (3.2-5.0); Alkaline Phosphatase 65 U/L (45-117); Anion Gap 5 (5-15); BUN 15 mg/dL (7-18); BUN/Creat Ratio 14.3 RATIO (10-20); Calcium,Total 8.7 mg/dL (8.5-10.1); Chloride 105 mmol/L (98-107); Creatinine, Serum 1.05 mg/dL (0.55-1.02); EST Glomerular Filtration Rate 60 mL/min (>60); Est Glom Filt Rate - Afr Amer 73 mL/min (>60); Globulin 3.6 g/dL (2.2-4.2); Glucose 88 mg/dL (74-106); Potassium 4.1 mmol/L (3.5-5.1); Protein, Total 7.1 g/dL (6.4-8.2); Sodium Level 139 mmol/L (136-145)
== END ==
PROVIDERS: PCP Physician Assistant; Referring Provider Psychiatry & Neurology Neurology; Visit Provider Psychiatry & Neurology Neurology
DX: S06.0X0A Concussion without loss of consciousness, initial encounter (principal)
CPT/HCPCS: 36415; 70553; 80053; 82607; 82746; 84443; 85027; A9575